=== PATIENT | female | born 1995 | race Caucasian/White ===

== ENCOUNTER 2024-07-08 17:07 | Outpatient (CLI) | payer MEDICAID, SELFPAY | END 2024-07-08 17:08 | disposition home or self-care (01) | LOC: AMB 07-09 08:01 | PROVIDERS: Visit Provider Emergency Medicine Emergency Medical Services | DX: R41.82 Altered mental status, unspecified (principal) | CPT/HCPCS: A0425; A0429 ==

== ENCOUNTER 2024-07-08 17:55 | Emergency (ER) | payer MEDICAID, SELFPAY ==
[2024-07-08] VITALS (23 sets, daily range): BP systolic 94–126; BP diastolic 62–82; PULSE 67–107; RESP 10–28; TEMP 36.4; O2SAT 96–100
--- NOTE | 2024-07-08 17:50 | CRLHL7_ITS ---
For Patients: As a result of the Century Cures Act, medical imaging exams and procedure reports are released immediately into your electronic medical record. You may view this report before your referring provider. If you have questions, please contact your health care provider. INDICATION: Altered mental status. TECHNIQUE: Noncontrast CT of the head with multiplanar reconstruction utilizing bone and soft tissue algorithms. COMPARISON: None available. FINDINGS: No acute intracranial hemorrhage. The meyer-white matter interface is preserved. The ventricles are normal in size. No abnormal extra-axial fluid collection is identified. Normal calvarium and skull base. Unremarkable orbits. The imaged paranasal sinuses and mastoid air cells are clear. IMPRESSION: No acute intracranial abnormality. Please note that all CT scans at this facility use dose modulation, iterative reconstruction, and/or weight-based dosing when appropriate to reduce radiation dose to as low as reasonably achievable. Dictated by Geoffrey Barker MD @ 07/08/2024 6:32:51 PM (Electronically Signed)
--- NOTE | 2024-07-08 17:54 | ED.AMS ---
HPI - Altered Mental Status General Chief Complaint: Altered Mental Status Stated Complaint: Altered Mental status Time Seen by Provider: 07/08/24 17:56 History of Present Illness HPI narrative: This patient comes in by ambulance. She is a 28-year-old who was sitting in her car as it was parked in a private driveway. The homeowner association manager of the property called the police who came and had her brought here by ambulance. The patient arrives with normal vital signs but is not responding verbally. She does briefly look at me but does not answer any questions. The nurse did look up her records and saw that she currently is and has a [place] home address. Related Data Home Medications ?Medication ?Instructions ?Recorded ?Confirmed buprenorphine-naloxone sublingual 07/08/24 fluoxetine .ROUTE 07/08/24 Allergies Allergy/AdvReac Type Severity Reaction Status Date / Time buspirone (From BuSpar) Allergy Unknown Verified 07/08/24 17:46 sertraline (From Zoloft) Allergy Unknown Verified 07/08/24 17:46 Review of Systems Status of ROS: Reports: unobtainable due to mental status Narrative: Unable to obtain due to mental status. 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 HEENT: Normocephalic, atraumatic. Heart: Regular. No murmurs. Normal rate. Intact distal pulses. Lungs: Clear to auscultation. No wheezes, rhonchi, or rales. Abdomen: Normal bowel sounds. Nontender. No rebound tenderness. Genitalia: Deferred. Extremities: Normal range of motion. No injury. Skin: Intact. No rash. Warm. No erythema or pallor. Neurologic: She opens her eyes and does look at me but does not respond verbally at all. She is not showing any neurologic deficit. When I raise her arm up and let it drop she guards it is fall back onto herself showing some volitional effort. Psychiatric: Not responding verbally. Nursing notes and vitals signs are reviewed. Const: Vital Signs, click to edit/add: Vital Signs - 24 hr 07/08/24 17:43 07/08/24 17:44 07/08/24 17:45 Temperature Pulse Rate 91 82 73 Pulse Rate [Pulse Oximeter] Respiratory Rate 28 H 17 21 Blood Pressure 126/82 Blood Pressure [Ri ght Upper Arm] Pulse Oximetry 97 100 100 Oxygen Delivery Me thod 07/08/24 17:46 07/08/24 18:00 07/08/24 18:21 Temperature 97.5 F L Pulse Rate 67 73 Pulse Rate [Pulse Oximeter] 70 Respiratory Rate 16 27 H 21 Blood Pressure Blood Pressure [Ri ght Upper Arm] 126/82 Pulse Oximetry 97 97 99 Oxygen Delivery Me thod Room Air 07/08/24 18:27 07/08/24 18:30 07/08/24 18:35 Temperature Pulse Rate 73 73 Pulse Rate [Pulse Oximeter] Respiratory Rate Blood Pressure 99/75 105/67 Blood Pressure [Ri ght Upper Arm] Pulse Oximetry 99 99 Oxygen Delivery Me thod 07/08/24 18:45 Temperature Pulse Rate 68 Pulse Rate [Pulse Oximeter] Respiratory Rate 16 Blood Pressure Blood Pressure [Ri ght Upper Arm] Pulse Oximetry 99 Oxygen Delivery Me thod Course Vital Signs Vital signs: Initial Vital Signs Pulse Rate 91 07/08/24 17:43 Respiratory Rate 28 H 07/08/24 17:43 Blood Pressure 126/82 07/08/24 17:43 Blood Pressure Mean 96 07/08/24 17:43 Pulse Oximetry 97 07/08/24 17:43 Vital Signs Pulse Rate 91 07/08/24 17:43 Respiratory Rate 28 H 07/08/24 17:43 Blood Pressure 126/82 07/08/24 17:43 Pulse Oximetry 97 07/08/24 17:43 Temperature 97.5 F L 07/08/24 17:46 Pulse Rate 68 07/08/24 18:45 Respiratory Rate 16 07/08/24 18:45 Blood Pressure 105/67 07/08/24 18:35 Pulse Oximetry 99 07/08/24 18:45 Oxygen Delivery Method Room Air 07/08/24 17:46 MDM - Altered Mental Status MDM Narrative Medical decision making narrative: This patient comes in by ambulance as she is not responding like she is sedated. She arrives here with normal vital signs and has a normal exam except she does not respond with voice or following commands. She did look at me when I 1st came into the room but then did not have any responses. An IV was established and labs are acquired. CT scan of her head is also obtained. These all returned with reassuring findings. Urinalysis and drug screen does return positive for benzodiazepine and marijuana. The patient does have a history of opiate and benzodiazepine abuse. She remained rather unresponsive in this same way for about 2 hours here. I did revisit her and she seemed to say something briefly when I came into the room but then again no response. About 5 minutes later the nurse was in there and she was talking normally. She seemed to wake up rather suddenly which is not characteristic of an overdose of benzodiazepines. She denies taking any street drugs or alcohol and now states that she feels normal and does not remember any of what happened. She does remember texting her sister earlier today to wish her a happy birthday. It is unclear what may have caused these circumstances. Does not appear that she had a seizure and was postictal for an extended time. She did not show any sign of seizure activity here and did not seem to respond for at least 2 in after 3 hours which is not characteristic of postictal symptoms. Perhaps she had some disturbance of her reticular activating Center and was not conscious or catatonic for a time. In any event she is acting very appropriately and is okay to be discharged home. Her car was impounded and her boyfriend will be able to come pick her up to bring her to her home. Lab Data Labs: Lab Results 07/08/24 07/08/24 Range/Units 18:35 18:51 WBC 11.78 H (4.50-11.00) K/uL RBC 4.27 (4.00-5.20) m/uL Hgb 12.8 (12.0-16.0) gm/dL Hct 37.5 (33.0-51.0) % MCV 88 (80-100) fL MCH 30 (26-34) pg MCHC 34 (32-36) gm/dL RDW Coeff of Rosa 12.3 (11.5-15.5) % Plt Count 224 (140-440) K/uL Neut % (Auto) 80.2 H (42.0-72.0) % Lymph % (Auto) 15.5 L (20-44) % [place]agara % (Auto) 3.8 (0.0-11.0) % Eos % (Auto) 0.1 (0.0-7.0) % Baso % (Auto) 0.2 (0.0-3.0) % Neut # (Auto) 9.40 H (1.7-7.0) K/uL Lymph # (Auto) 1.80 (0.90-2.90) K/uL [place] # (Auto) 0.40 (0.00-0.90) K/UL Eos # (Auto) 0.00 (0.00-0.50) K/uL Baso # (Auto) 0.00 (0.00-0.30) K/uL Abs Immat Gran (auto) 0.00 (0.00-0.30) K/uL Imm/Tot Granulo (auto) 0.2 % Sodium 131 L (135-149) mmol/L Potassium 4.3 (3.6-5.1) mmol/L Chloride 96 (96-114) mmol/L Carbon Dioxide 23 (20-32) mmol/L Anion Gap 12 (7-15) mEq/L BUN 8 (5-24) mg/dL Creatinine 0.5 (0.5-1.5) mg/dL Estimated GFR 130 ml/min Glucose 79 (60-115) mg/dL Calcium 10.0 (8.4-10.6) mg/dL Urine Color Yellow (Yellow) Urine Appearance Cloudy A (Clear) Urine pH 6.0 (5.0-8.5) Ur Specific Aurora 1.020 (1.000-1.030) Urine Protein Negative (Negative) Urine Glucose (UA) Negative (Negative) Urine Ketones Trace A (Negative) Urine Blood 1+ A (Negative) Urine Nitrite Negative (Negative) Urine Bilirubin Negative (Negative) Urine Urobilinogen 0.2 (0.2-1.0) Ur Leukocyte Esterase Negative (Negative) Urine RBC 0-2 (0-2) Urine WBC 0-2 (0-5) Ur Squamous Epith Cells Few (None-Few) Amorphous Sediment Many A (None) Urine Bacteria None (None) Salicylates < 1.0 L (1.0-10) mg/dL Urine Opiates Screen Negative (Negative) Ur Oxycodone Screen Negative (Negative) Urine Methadone Screen Negative (Negative) Ur Barbiturates Screen Negative (Negative) U Tricyclic Antidepress Negative (Negative) Ur Phencyclidine Scrn Negative (Negative) Ur Amphetamines Screen Negative (Negative) U Methamphetamines Scrn Negative (Negative) U Benzodiazepines Scrn POSITIVE A (Negative) Urine Cocaine Screen Negative (Negative) U Marijuana (THC) Screen POSITIVE A (Negative) Ur Drug Screen Comment See Note Ethyl Alcohol < 0.01 (0.01-0.03) % Imaging Data CT scan - head: Radiologist's impression: No acute intracranial abnormality. ECG Data Attestation: I personally reviewed and interpreted this ECG as follows: Interpretation: Normal sinus rhythm. Rate is 68 beats per minute. There are no ST or T-wave abnormalities. Discharge Plan Discharge Clinical Impression: Altered mental status Patient Disposition: Home w/ Parent or Adult Condition: Improved Additional Instructions: Continue current plans. Follow up with MD for ongoing management or return if symptoms are recurrent. Prescriptions: No Action buprenorphine-naloxone [Suboxone] sublingual fluoxetine [Prozac] .ROUTE Stand Alone Forms: [employer] [facility] Info Instructions
[2024-07-08 18:48] LABS: Basophils Percent Auto 0.2 % (0.0-3.0); Eosinophils Percent Auto 0.1 % (0.0-7.0); Hematocrit* 37.5 % (33.0-51.0); Hemoglobin* 12.8 gm/dL (12.0-16.0); Immature Granulocytes Pct Auto 0.2 %; Lymphocytes Percent Auto 15.5 % (20-44); Mean Corpuscular HGB Conc 34 gm/dL (32-36); Mean Corpuscular Hemoglobin 30 pg (26-34); Mean Corpuscular Volume 88 fL (80-100); Monocytes Percent Auto 3.8 % (0.0-11.0); Neutrophils Percent Auto 80.2 % (42.0-72.0); Platelet Count* 224 K/uL (140-440); RDW Coefficient of Variation % 12.3 % (11.5-15.5); Red Blood Count* 4.27 m/uL (4.00-5.20); White Blood Count* 11.78 K/uL (4.50-11.00)
[2024-07-08 18:51] LABS: Slide Review Reflex No
[2024-07-08 18:59] LABS: Appearance Urine Cloudy (Clear); Bilirubin Urine Negative (Negative); Blood Urine 1+ (Negative); Color Urine Yellow (Yellow); Glucose Urine Negative (Negative); Ketones Urine Trace (Negative); Leukocyte Esterase Urine Negative (Negative); Nitrite Urine Negative (Negative); Protein Urine Negative (Negative); Urobilinogen Urine 0.2 (0.2-1.0)
[2024-07-08 19:10] LABS: Amphetamine Screen Urine Negative (Negative); Barbiturate Screen Urine Negative (Negative); Benzodiazepines Screen Urine POSITIVE (Negative); Cannabinoid Screen Urine POSITIVE (Negative); Cocaine Screen Urine Negative (Negative); Methadone Screen Urine Negative (Negative); Methamphetamines Screen Urine Negative (Negative); Opiate Screen Urine Negative (Negative); Oxycodone Screen Urine Negative (Negative); Phencyclidine Screen Urine Negative (Negative); Tricyclic Antidepressant Urine Negative (Negative)
[2024-07-08 19:32] LABS: Chloride* 96 mmol/L (96-114); Potassium* 4.3 mmol/L (3.6-5.1); Sodium* 131 mmol/L (135-149)
[2024-07-08 19:34] LABS: Blood Urea Nitrogen* 8 mg/dL (5-24); Creatinine* 0.5 mg/dL (0.5-1.5); Estimated Glomerular Filt Rate 130 ml/min
[2024-07-08 19:35] LABS: Anion Gap 12 mEq/L (7-15); Carbon Dioxide* 23 mmol/L (20-32); Glucose* 79 mg/dL (60-115)
[2024-07-08 19:37] LABS: Ethanol* < 0.01 % (0.01-0.03); Salicylate* < 1.0 mg/dL (1.0-10)
[2024-07-08 19:48] LABS: Amorphous Sediment Urine Many; RBC Urine 0-2 (0-2); Squamous Epithelial Cell Urine Few (None-Few); WBC Urine 0-2 (0-5)
--- OUTSIDE RECORDS SUMMARY | 2024-07-08 20:46 | XMS_ITS | Encounter Summary ---
Author Organization [facility] er Address [address] [place] [address] Care Team Providers Care Appeals Examiner Name Role Phone Virginia Mendoza MD Primary Care Provider Encounter Details Date Type Department Care Team (Late st Contact Info) Description 12/14/2021 Telephone [facility] [address] [place] [phone] June Ewing RN [address] [place] [phone] Social History Tobacco Use Types Packs/Day Years Used Date Smoking Tobacco: Every Day Cigarettes Smokeless Tobacco: Never Alcohol Use Standard Drinks/Week Comments Not Currently 0 (1 standard drink = 0.6 oz pure alcohol) History of alcohol use disorder Humiliation, Afraid, Rape, and Kick questionnair e Answer Date Recorded Within the last year, have y ou been afraid of your partner or ex-partner? No 01/05/2020 Within the last year, have y ou been humiliated or emotionally abused in other ways by your partner or ex-partner? No Within the last year, have y ou been kicked, hit, slapped, or otherwise physically hurt by your partner or ex-partner? No 01/05/2020 Within the last year, have y ou been raped or forced to have any kind of sexual activity by your partner or ex-partner? No 01/05/2020 Social Connection and Isolat ion Panel [NHANES] Answer Date Recorded In a typical week, how many times do you talk on the phone with family, friends, or neighbors? More than three times a week 01/05/2020 How often do you get togethe r with friends or relatives? More than three times a week 01/05/2020 How often do you attend chur ch or scientologist services? Never 01/05/2020 Do you belong to any clubs o r organizations such as caodaism groups, unions, fraternal or athletic groups, or school groups? No 01/05/2020 How often do you attend meet ings of the clubs or organizations you belong to? Never 01/05/2020 Are you , , di vorced, , never , or living with a partner? Never 01/05/2020 AUDIT-C Answer Date Recorded Q1: How often do you have a drink containing alc ohol? Never 01/14/2020 Q2: How many drinks containi ng alcohol do you have on a typical day when you are drinking? Not asked 01/14/2020 Q3: How often do you have six or more drinks on one occasion? Never 01/14/2020 Overall Financial Resource Strain (CARDIA) Answe r Date Recorded How hard is it for you to pa y for the very basics like food, housing, medical care, and heating? Not hard at all 01/05/2020 PHQ-2 Answer Date Recorded PHQ-9 Total Score 0 12/14/2021 [facility] - Occupational Stress Questionnaire Answer Date Recorded Do you feel stress - tense, restless, nervous, or anxious, or unable to sleep at night because your mind is troubled all the time - these days? Very much 01/05/2020 Exercise Vital Sign Answer Date Recorde d On average, how many days pe r week do you engage in moderate to strenuous exercise (like a brisk walk)? 0 days 01/05/2020 On average, how many minutes do you engage in exercise at this level? 0 min 01/05/2020 Hunger Vital Sign Answer Date Recorded Within the past 12 months, y ou worried that your food would run out before you got the money to buy more. Never true 01/05/20 20 Within the past 12 months, t he food you bought just didn't last and you didn't have money to get more. Never true 01/05/2020 PRAPARE - Transportation Answer Date Re corded In the past 12 months, has l ack of transportation kept you from medical appointments or from getting medications? No 12/08 In the past 12 months, has l ack of transportation kept you from meetings, work, or from getting things needed for daily living? No 01/05/2020 Comments No Sex and Gender Information Value Date Recorded Sex Assigned at Female 01/30/2021 3:46 PM CDT Legal Sex Female 9:43 AM CDT Gender Identity Female 01/30/2021 3:46 PM CDT Sexual Orientation Straight 01/30/2021 3: 46 PM CDT Occupation Industry Job Start Date Job End Date Unemployed; currently in treatment. Not on file Not o n file Not on file documented as of this encounter Plan of Treatment Upcoming Encounters Date Type Department Care Team (Late st Contact Info) Description 08/04/2024 1:30 PM CDT Routine [facility] [employer] Dis[employer] Manager [address] [place] [phone] [place] [address] [place] [address] [phone] documented as of this encounter Visit Diagnoses Not on filedocumented in this encounter Care Teams Appeals Examiner Relationship Specialty Start Date End Date Virginia Mendoza MD [address] [place] [address] [phone] PCP - General Family Medicine 10/06/23 documented as of this encounter
--- OUTSIDE RECORDS SUMMARY | 2024-07-08 20:46 | XMS_ITS | Encounter Summary ---
Author Organization [facility] er Address [address] [place] [id number] Care Team Providers Care Image Processing Engineer Name Role Phone Virginia Mendoza MD Primary Care Provider Reason for Visit * Reason Comments Initial Visit Encounter Details Date Type Department Care Team (Late st Contact Info) Description 06/07/2024 1:00 PM IRONMOLDER Initial [facility] Material Worker [address] [place] [phone] [place] [address] [place] [address] [phone] [place]: [id number] Social History Tobacco Use Types Packs/Day Years Used Date Smoking Tobacco: Former Cigarettes Passive Smoke Exposure: Current Smokeless Tobacco: Never Alcohol Use Standard Drinks/Week Comments Not Currently 0 (1 standard drink = 0.6 oz pure alcohol) History of alcohol use disorder B1300 Health Literacy Answer Date Recor ded How often do you need to hav e someone help you when you read instructions, pamphlets, or other written material from your doctor or pharmacy? Never 06/07/2024 [facility] Utilities Answer Date Recorded In the past 12 months has e [employer], gas, oil, or water company threatened to shut off services in your home? No 06/07/2024 Humiliation, Afraid, Rape, and Kick questionnair e Answer Date Recorded Within the last year, have y ou been afraid of your partner or ex-partner? No 05/31/2024 Within the last year, have y ou been humiliated or emotionally abused in other ways by your partner or ex-partner? No Within the last year, have y ou been kicked, hit, slapped, or otherwise physically hurt by your partner or ex-partner? No 05/31/2024 Within the last year, have y ou been raped or forced to have any kind of sexual activity by your partner or ex-partner? No 05/31/2024 Social Connection and Isolat ion Panel [NHANES] Answer Date Recorded In a typical week, how many times do you talk on the phone with family, friends, or neighbors? More than three times a week 06/07/2024 How often do you get togethe r with friends or relatives? Twice a week 06/07/2024 How often do you attend chur or jehovah's witness services? Never 06/07/2024 Do you belong to any clubs o r organizations such as buddhism groups, unions, fraternal or athletic groups, or school groups? No 06/07/2024 How often do you attend meet ings of the clubs or organizations you belong to? Never 06/07/2024 Are you , , di vorced, , never , or living with a partner? Living with partner 06/07/2024 AUDIT-C Answer Date Recorded Q1: How often do you have a drink containing alc ohol? 2-4 times a month 06/07/2024 Q2: How many drinks containi ng alcohol do you have on a typical day when you are drinking? 1 or 2 06/07/2024 Q3: How often do you have si x or more drinks on one occasion? Less than monthly 06/07/2024 Overall Financial Resource Strain (CARDIA) Answe r Date Recorded How hard is it for you to pa y for the very basics like food, housing, medical care, and heating? Somewhat hard 06/07/2024 PHQ-2 Answer Date Recorded PHQ-9 Total Score 3 06/07/2024 [facility] [employer] - Occupational Stress Questionnaire Answer Date Recorded Do you feel stress - tense, restless, nervous, or anxious, or unable to sleep at night because your mind is troubled all the time - these days? Only a little 06/07/2024 Exercise Vital Sign Answer Date Recorde d On average, how many days pe r week do you engage in moderate to strenuous exercise (like a brisk walk)? 4 days 06/07/2024 On average, how many minutes do you engage in exercise at this level? 30 min 06/07/2024 Hunger Vital Sign Answer Date Recorded Within the past 12 months, y ou worried that your food would run out before you got the money to buy more. Sometimes true Within the past 12 months, t he food you bought just didn't last and you didn't have money to get more. Sometimes true 06/2024 PRAPARE - Transportation Answer Date Re corded In the past 12 months, has l ack of transportation kept you from medical appointments or from getting medications? No 06/2024 In the past 12 months, has l ack of transportation kept you from meetings, work, or from getting things needed for daily living? No 06/07/2024 Housing Stability Vital Sign Answer Jordy e Recorded In the last 12 months, was t here a time when you were not able to pay the mortgage or rent on time? No 02/11/2023 In the last 12 months, how many places have you lived? 1 02/11/2023 In the last 12 months, was t here a time when you did not have a steady place to sleep or slept in a retirement (including now)? No 02/11/2023 Housing Stability Vital Sign Answer Jordy e Recorded In the last 12 months, was t here a time when you were not able to pay the mortgage or rent on time? Patient declined 06/08/19 25 In the past 12 months, how m any times have you moved where you were living? 2 06/07/2024 At any time in the past [facility], were you homeless or living in a retirement (including now)? No 06/07/2024 Education Answer Date Recorded What is the highest level of school you have completed or the highest degree you have received? 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 at 8w0d confirmed by 7 week US who presents for an initial visit. Unknown LMP due to recent miscarriage. Feeling overall well other than minor fatigue. PMH: h/o substance use (in remission for few years). Was on suboxone but stopped last summer. Anxiety, depression, HLA b27 Her is complicated by: H/o substance abuse in remission Anxiety Depression HLA B27 Denies history of abnormal pap smears. Last pap many years ago. Patient Active Problem List Diagnosis Date Noted Date Diagnosed HLA B27 (HLA B27 positive) 05/31/2024 No symptoms--> recommended bASA in Depression 05/31/2024 Supervision of high risk , antepartum 05/31/2024 New OB Lab Results Lab Results Component Value Date HEPBSAG NON-REACTIVE 01/10/2020 HEPCAB REACTIVE (AA) 01/10/2020 RPR NON-REACTIVE 01/10/2020 CHLAMBYPCR NOT DETECTED 03/06/2023 GCBYPCR NOT DETECTED 03/06/2023 HGB 12.6 06/07/2024 PLT 314 06/07/2024 Varicella IgG Antibody index: No results found for: DEXG4 or status post varicella vaccine Genetic screening: Anatomy u/s: Flu vaccine: Tdap vaccine: RSV vaccine (32-36 6/7 weeks gestation between December to April.): Other seizures (HCC) 08/13/2023 Patient notes a history of seizures which were thought to be related to substance use. Reportedly attributed to LSD use and heroin withdrawal, at one point had recently started sertraline and was unclear if this contributed. Last seizure was 2 years ago so around 2021, reports a total of about 4-5 seizures over the course of 10 years. Was on Keppra previously but stopped around 10 years ago. Last Assessment & Plan: Avoid any medications that would lower seizure threshold. 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 Did well on 2 mg daily, but then when she stopped this had bad withdrawal symptoms sopresented to the ED on 07/26/2023. Was prescribed 4 mg daily based on her COWS score at time of presentation. Has been doing well on this dose most days, but about once a week will have some restlessness in the evening and take an additional 2 mg dose. Her goal is to eventually get of suboxone completely. 09/02/2023: Patient is currently on 4 mg Suboxone and would like to weaned down to 2 mg and then discontinue itcompletely. She feels that it is starting to ruin her teeth and she has no desire to do opioids anymore. She has not had a urine drug screen completed as she was not able to complete it at the end of her clinic visit on 08/12 and was not aware that she needed to schedule this Last Assessment & Plan: Discussed that it is important to schedule her urine drug screen. The order is active she just needs to call to schedule it when she is able Social anxiety disorder 02/01/2021 History of hepatitis C virus infection 12/01/2020 Positive HCV antibody [place] 01[place] [facility] Initially viral load [address]1025, eventually negative viral loadin 08/2020. Cleared infection. She reports treatment. 06/07/24 Hep C ab ordered, will likely be positive and viral load will be ordered HIV antibody positive (HCC) 01/12/2020 Hx of IVDU, including sharing needles. HIV antibody positive on 01/10/2020. Pt informed 01/12/2020. Confirmatory testing via both differentiation and RNA negative one two separate occassions. This means antibody testing was false positive. 06/07/24 HIV Ag ordered Generalized anxiety disorder 01/22/2019 Stable. Currently on Prozac Polysubstance abuse (HCC) 01/22/2019 History of opioid use disorder, no use for years. Discontinued suboxone last summer Severe benzodiazepine use disorder (HCC) 01/22/2019 Historically and recently Jan 2023 was given short course of prescription lorazepam for severe adjustment anxiety, relapsed on several illicit substances (meth, cocaine), as well as other benzodiazepines were found in her system (xanax, possible diazepam). Recommendation to NOT given benzodiazepines in outpatient setting. OB History 4 Para Term AB 3 Living SAB 1 IAB 2 Ectopic Multiple Live Births Past Medical History: Diagnosis Date Anxiety Depression Gene mutation HLA-B27 Generalized anxiety disorder 01/05/2020 History of hepatitis C Completed treatment Major depression 04/22/2019 Opioid use disorder, severe, in sustained remission (HCC) 02/01/2021 Social anxiety disorder 02/01/2021 Withdrawal seizures ([facility]) Past Surgical History: Procedure Laterality Date APPENDECTOMY WISDOM TOOTH EXTRACTION Current Outpatient Medications: cholecalciferol (VITAMIN D-3) 50 MCG (1999) tablet, , Disp: , Rfl: FLUoxetine (PROzac) 40 MG capsule, Take 1 capsule (40 mg total) by mouth 1 (one) time each day, Disp: 30 capsule, Rfl: 2 folic acid (FOLVITE) 1 MG tablet, , Disp: , Rfl: MV-Min-Fe Fum-FA-DHA ( 1 PO), , Disp: , Rfl: Allergies Allergen Reactions Buspirone Other (see comments) Sertraline Other (see comments) Pt reports a bad reaction to zoloft, however the reaction is unclear and occurred during a time of other drug use. Social History Socioeconomic History Marital status: Life Partner Spouse name: Arnulfo Quiles Number of children: Not on file Years of education: Not on file Highest education level: High school graduate Occupational History Occupation: Caregiver Comment: [employer] Tobacco Use Smoking status: Former Current packs/day: 0.25 Types: Cigarettes Passive exposure: Current Smokeless tobacco: Never Vaping Use Vaping status: Every Day Substances: Nicotine, Flavoring, occasional hits off her vape with nicotine ~ uses a vape with flavor otherwise without nicotine Devices: Disposable Substance and Sexual Activity Alcohol use: Not Currently Comment: History of alcohol use disorder Drug use: Not Currently Types: Heroin, IV Comment: Sober since 2021. Sexual activity: Yes Partners: Male Other Topics Concern Not on file Social History Narrative Jamar lives with her boyfriend/fob Baldev Quiles. This will be his first child as well. Social Drivers of Health Financial Resource Strain: Medium Risk (06/07/2024) Overall Financial Resource Strain (CARDIA) Difficulty of Paying Living Expenses: Somewhat hard Food Insecurity: Food Insecurity Present (06/07/2024) Hunger Vital Sign Worried About Running Out of Food in the Last Year: Sometimes true Ran Out of Food in the Last Year: Sometimes true Transportation Needs: No Transportation Needs (06/07/2024) PRAPARE - Transportation Lack of Transportation (Medical): No Lack of Transportation (Non-Medical): No Physical Activity: Insufficiently Active (06/07/2024) Exercise Vital Sign Days of Exercise per Week: 4 days Minutes of Exercise per Session: 30 min Stress: No Stress Concern Present (06/07/2024) [facility] [employer]ational Health - Occupational Stress Questionnaire Feeling of Stress : Only a little Social Connections: Moderately Isolated (06/07/2024) Social Connection and Isolation Panel [NHANES] Frequency of Communication with Friends and Family: More than three times a week Frequency of Social Gatherings with Friends and Family: Twice a week Attends Sabianist Services: Never Active Member of Clubs or Organizations: No Attends Club or Organization Meetings: Never Marital Status: Living with partner Intimate Partner Violence: Not At Risk (05/31/2024) Humiliation, Afraid, Rape, and Kick questionnaire Fear of Current or Ex-Partner: No Emotionally Abused: No Physically Abused: No Sexually Abused: No Housing Stability: High Risk (06/07/2024) Housing Stability Vital Sign Unable to Pay for Housing in the Last Year: Patient declined Number of Times Moved in the Last Year: 2 Homeless in the Last Year: No Objective Physical Exam Vitals: 06/07/24 1254 BP: 122/73 GENERAL: Resting comfortable, in no apparent distress. HEAD: No signs of head trauma. NECK: Trachea is midline. No thyromegaly or thyroid masses. BREAST EXAM: Deferred CHEST: Unlabored respiration. Chest with clear breath sounds bilaterally. No wheezes, rales, or rhonchi. CARDIAC: Regular rate and rhythm. No murmurs VASCULAR: No lower extremity edema. ABDOMEN: Soft. No sign of distention. Nontender. No rebound or guarding, and no masses palpated. Nohepatosplenomegaly. GENITOURINARY: External genitalia normal in appearance. Urethral meatus without lesions or prolapse. Vagina normal without discharge or lesions. Cervix normal in appearance with closed cervical os. Pap collected MUSCULOSKELETAL: Extremities without clubbing, cyanosis or edema. NEUROLOGIC EXAM: Alert and oriented to person, place and time. PSYCHIATRIC: Affect normal. SKIN: No rash or lesions. 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 [facility] model of care reviewed. Genetic screening options reviewed - she desires possible mat21, insurance information provided. She will consider this Risk factors for preeclampsia include: nulliparity, autoimmune. She does meet criteria for preeclampsia prevention with low-dose aspirin. Will discuss at next visit- start at 12 weeks. The patient was given the 4 Ps screening tool for substance use at the time of her NOB phone call and the score placed the patient into the low zone of use currently. History of substance use. UDS recommended but will defer per her request as she had oxycodone in the ED for a tooth issue. Will consider at next visit Reviewed available vaccines in , she desires none today. Emergency number (after hours) given to pt. She was advised to call with any questions, spotting/bleeding or significant pelvic pain. Advised a vitamin with 0.4-1.0 mg, (400-1000 mcg) folic acid daily. Also DHA, 200 mg, if not a fish eater. Discussed continuing exercise: 30 minutes, 5 days a week. Discussed safe med list she will call if something she would like to take is not listed. Discussed avoidance of: *tobacco, drugs or alcohol. *high risk activities such as horse-back riding, skiing, skating (anything that would put you at risk for injury) *cats and cat litter (toxoplasma) *raw meat or fish, sushi (listeria) *un-pasteurized dairy products such as soft cheeses (listeria) Discussed the need to steam deli meats 20 seconds in microwave (listeria) Follow up in 4 weeks for return OB visit. Needs to discuss bASA at that visit. Heather Ramirez MD MOLDER documented in this encounter Plan of Treatment Upcoming Encounters Date Type Department Care Team (Late st Contact Info) Description 08/04/2024 1:30 PM CDT Routine [facility] Material Worker [address] [place] [phone] Heather Ramirez MD [address] [place] [address] [phone] documented as of this encounter Procedures Procedure Name Priority Date/Time Associated Diagnosis Comments MOLECULAR VAGINITIS/VAGINOSIS PANEL Routine 06/07/2024 1:29 PM IRONMOLDER Vaginal discharge HPV HIGH RISK DNA DETECTION WITH GENOTYPING Routine 06/07/2024 1:21 PM IRONMOLDER Supervision of high risk , antepartum CHLAMYDIA AND NEISSERIA BY PCR Routine 06/07/2024 1:21 PM IRONMOLDER Supervision of high risk , antepartum PAP TEST Routine 06/07/2024 1:21 PM IRONMOLDER Supervision of high risk , antepartum documented in this encounter Results * (ABNORMAL) Rubella antibody, IgG (06/07/2024 1:53 PM IRONMOLDER) [facility] Rubella IgG NON-REACT SARAH(A) SEE BELOW 06/07/2024 4:22 PM IRONMOLDER [facility] Comment: A reactive result indicates either prior exposure to the virus or response to vaccination. The presence of rubella IgG suggests immunity against rubella. The results from this or any other diagnostic test should be used and interpreted only in the context of the overall clinical picture. Heterophilic antibodies in serum or plasma samples may cause interference in immunoassays. Exposure to animal antigens, either in the environment or as part of treatment or imaging procedures, may have circulating anti-animal antibodies present. These antibodies may interfere with the assay reagents to produce unreliable results. Results which are inconsistent with clinical observations indicate the need for additional testing. Blood (Blood, Venous) 06/07/2024 1:53 PM IRONMOLDER 06/07/2024 2:56 PM IRONMOLDER Heather Ramirez MD LAB BLOOD ORDERABLES Final Result Performing Organization Address City/[facility]/ZIP Co de Phone Number [facility] [address] [place] [address] * RPR (06/07/2024 1:53 PM IRONMOLDER) [facility] RPR NON-REACTI VE Non-reacti ve 06/07/2024 9:18 PM IRONMOLDER [facility] Blood (Blood, Venous) 06/07/2024 1:53 PM IRONMOLDER 06/07/2024 2:56 PM IRONMOLDER Heather Ramirez MD LAB BLOOD ORDERABLES Final Result [facility] [address] [place] [phone] * HIV 1 & 2 Ag and Ab, 4th Gen, Screen (06/07/2024 1:53 PM IRONMOLDER) [facility] HIV 1 & 2 Ag and Ab, 4th Gen, Screen NON-REACT SARAH Non-React sarah 06/07/2024 3:46 PM IRONMOLDER [facility] Comment: The results from this or any other diagnostic test should be used and interpreted only in the context of the overall clinical picture. Heterophilic antibodies in serum or plasma samples may cause interference in immunoassays. Exposure to animal antigens, either in the environment or as part of treatment or imaging procedures, may have circulating anti-animal antibodies present. These antibodies may interfere with the assay reagents to produce unreliable results. Results which are inconsistent with clinical observations indicate the need for additional testing. Blood (Blood, Venous) 06/07/2024 1:53 PM IRONMOLDER 06/07/2024 2:47 PM IRONMOLDER Heather Ramirez MD LAB BLOOD ORDERABLES Final Result [facility] [address] [place] [address] * (ABNORMAL) Hepatitis C antibody (06/07/2024 1:53 PM IRONMOLDER) Hepatitis C Antibody REACTIVE( AA) Non-React sarah 06/07/2024 5:44 PM IRONMOLDER [facility] Comment: Reportable Disease Agent. Electronically Reported to [facility]. It is recommended by the CDC that reactive screening results be followed by supplemental testing with a more specific assay, such as recombinant immunoblot assay [RIBA] or RNA testing by PCR. The results from this or any other diagnostic test should be used and interpreted only in the context of the overall clinical picture. Heterophilic antibodies in serum or plasma samples may cause interference in immunoassays. Exposure to animal antigens, either in the environment or as part of treatment or imaging procedures, may have circulating anti-animal antibodies present. These antibodies may interfere with the assay reagents to produce unreliable results. Results which are inconsistent with clinical observations indicate the need for additional testing. Blood (Blood, Venous) 06/07/2024 1:53 PM IRONMOLDER 06/07/2024 2:56 PM IRONMOLDER Heather Ramirez MD LAB BLOOD ORDERABLES Final Result Performing Organization Address [facility] Co de Phone Number [facility] [address] [place], [place] [phone] * Hepatitis B surface antigen (06/07/2024 1:53 PM IRONMOLDER) Pathologist [facility] Hep. Bs Antigen (HBsAg) NON-REACT SARAH Non-React sarah 06/07/2024 4:22 PM IRONMOLDER [facility] Comment: The results from this or any other diagnostic test should be used and interpreted only in the context of the overall clinical picture. Heterophilic antibodies in serum or plasma samples may cause interference in immunoassays. Exposure to animal antigens, either in the environment or as part of treatment or imaging procedures, may have circulating anti-animal antibodies present. These antibodies may interfere with the assay reagents to produce unreliable results. Results which are inconsistent with clinical observations indicate the need for additional testing. Blood (Blood, Venous) 06/07/2024 1:53 PM IRONMOLDER 06/07/2024 2:56 PM IRONMOLDER Heather Ramirez MD LAB BLOOD ORDERABLES Final Result Performing Organization Address [facility] de Phone Number [facility] [address] [place] [phone] * (ABNORMAL) CBC ([facility]) (06/07/2024 1:53 PM IRONMOLDER) [facility] WBC 10.6(H) 3.5 - 10.5 K/uL 06/07/2024 3:06 PM [facility] RBC 4.31 3.90 - 5.00 M/uL 06/07/2024 3:06 PM [facility] Hemoglobin 12.6 12.0 - 15.5 g/dL 06/07/2024 3:06 PM [facility] Hematocrit 37.9 35.0 - 44.0 % 06/07/2024 3:06 PM [facility] Platelets 314 150 - 450 K/uL 06/07/2024 3:06 PM [facility] MCV 87.9 81.6 - 98.3 fL 06/07/2024 3:06 PM [facility] MCH 29.2 26.0 - 32.0 pg 06/07/2024 3:06 PM [facility] MCHC 33.2 32.0 - 36.0 g/dL 06/07/2024 3:06 PM [facility] RDW 13.2 11.9 - 15.5 % 06/07/2024 3:06 PM [facility] NRBC %, Automated 0 % 06/07/2024 3:06 PM [facility] NRBC Absolute, Autmated 0.00 K/uL 06/07/2024 3:06 PM [facility] Comment: 0-4 Days: 0.01 -0.02 >=5 Days: 0.00 Blood (Blood, Venous) 06/07/2024 1:53 PM IRONMOLDER 06/07/2024 2:56 PM IRONMOLDER Heather Ramirez MD LAB BLOOD ORDERABLES Final Result Performing Organization Address [facility]/ZIP Co de Phone Number [facility] [address] [place] [address] * Antibody Screen (Gel) (06/07/2024 1:53 PM IRONMOLDER) Antibody Screen NEG 06/07/2024 4:08 PM [facility] Blood (Blood, Venous) 06/07/2024 1:53 PM IRONMOLDER 06/07/2024 2:56 PM IRONMOLDER Heather Ramirez MD LAB BLOOD BANK TEST ORDERAB LES Final Result Performing Organization Address [facility]/ZIP Co de Phone Number [facility] [address] [place], [place] [id number] * ABO/Rh (Gel) (06/07/2024 1:53 PM IRONMOLDER) ABO/Rh A POS 06/07/2024 4:02 PM [facility] Blood (Blood, Venous) 06/07/2024 1:53 PM IRONMOLDER 06/07/2024 2:56 PM IRONMOLDER Heather Ramirez MD LAB BLOOD BANK TEST ORDERAB LES Final Result Performing Organization Address [facility]/ZIP Co de Phone Number [facility] [address] [place] [phone] * Urine Screen (06/07/2024 1:38 PM IRONMOLDER) Pathologist [facility] Urine Screen No Growth 06/08/2024 12:19 PM IRONMOLDER [facility] Urine (Urine, Clean Catch) 06/07/2024 1:38 PM IRONMOLDER 06/07/2024 2:58 PM IRONMOLDER Comment:Urine Screen Heather Ramirez MD LAB MICROBIOLOGY - GENERAL ORDERABLES Final Result Performing Organization Address [facility] de Phone Number [facility] [address] [place] [phone] * (ABNORMAL) Molecular Vaginitis/Vaginosis Panel (06/07/2024 1:29 PM IRONMOLDER) [facility] Bacterial Vaginosis NEGATIVE Negative 06/07 4:23 PM [facility] Liliana species group DETECTED(A) Not Detected 06/07/2024 4:23 PM [facility] Liliana glabrata/krusei NOT DETECTED Not Detected 06/07/2024 4:23 PM [facility] Trichomonas vaginalis NOT DETECTED Not Detected 06/07/2024 4:23 PM [facility] Comment: Interpret results in conjunction with other laboratory and clinical data. Testing performed on the [employer] GeneXpert using real-time PCR for the amplification of specific DNA targets utilizing fluorogenic, target-specific hybridization probes to detect and differentiate DNA from organisms associated with: *Bacterial vaginosis: Atopobium spp.(Atopobium vaginae, Atopobium novel species CCUG [id number]), Bacterial Vaginosis-Associated Bacterium 2 (BVAB2), and Megasphaera-1 *Liliana spp.(C. albicans, C. tropicalis,C. parapsilosis, C. dubliniensis, species not differentiated) *Liliana glabrata/Liliana krusei (species not differentiated) *Trichomonas vaginalis The following organisms may cross-react with the MVP assay: Liliana orthopsilosis, Pentatrichomonas hominis, and Trichomonas tenax. Test has not been evaluated in patients less than 14 years of age. Swab (Vagina) 06/07/2024 1:2 9 PM IRONMOLDER 06/07/2024 2:58 PM IRONMOLDER us Heather Ramirez MD LAB MICROBIOLOGY - GENERAL ORDERABLES Final Result [facility] [address] [place] [address] * HPV High Risk DNA Detection with Genotyping (06/07/2024 1:21 PM IRONMOLDER) Source Cx/Endocerv ix 06/08/2024 6:27 PM IRONMOLDER [facility] HPV Type 16 Negative Negative 06/08/2024 6:27 PM IRONMOLDER [facility] HPV Type 18 Negative Negative 06/08/2024 6:27 PM IRONMOLDER [facility] HPV non-Type 16 or 18 Negative Negative 06/08/2024 6:27 PM IRONMOLDER [facility] Comment: The following Other High Risk HPV types were not detected: 31, 33, 35, 39, 45, 51, 52, 56, 58, 59, 66, and 68. ADDITIONAL INFORMATION Testing was performed using the paul HPV assay ([employer] This report is intended for use in clinical monitoring and management of patients. It is not intended for use in medical-legal applications. This test has been modified from the aquatic biologist's instructions. Its performance characteristics were determined by [facility] in a manner consistent with CLIA requirements. This test has not been cleared or approved by the U.S. Food and Drug Administration. Test Performed by: [facility] [address] [place] [address] Leader Tier: Vish Sol Ph.D.; CLIA# [id number] Pap collection bottle 06/07/2024 1:21 PM IRONMOLDER 06/07/2024 2:23 PM IRONMOLDER us Heather Ramirez MD LAB CYTOLOGY ORDERABLES Luis E menchaca Result [facility] [address] [place] [address], [place] * (ABNORMAL) Pap Smear (06/07/2024 1:21 PM IRONMOLDER) Sure Path PAP, screen 06/07/2024 1:21 PM IRONMOLDER 06/07/2024 2:24 PM IRONMOLDER Narrative [facility] - 06/09/2024 2:18 PM IRONMOLDER [facility] [address] [place] [address] Patient: JAMAR AYALA Procedure: 06/07/2024 13:21 /Age/Sex: 1995, 28 Y, F Received: 06/07/2024 14:24 Bill[place] Patient Location: [facility] Ordered by: HEATHER RAMIREZ MD Attending: HEATHER RAMIREZ MD DIGITAL MEDIA COORDINATOR CYTOLOGY FINAL REPORT SPECIMEN: (A) SURE PATH PAP, SCREEN SPECIMEN DESCRIPTION: Cervical/Endocervical Received cloudy specimen in SurePath vial. CLINICAL INFORMATION: : Y SPECIMEN ADEQUACY: Satisfactory for evaluation. Endocervical cells/transformation zone component present. GENERAL CATEGORIZATION: Epithelial cell abnormality. INTERPRETATION/RESULTS: Atypical squamous cells of undetermined significance (ASCUS). Fungal organisms morphologically consistent with Liliana species. Seen in consultation with Dr. Moss. PAP Test Disclaimer Cervical cytology is a screening test primarily for squamous cancer and its precursors and has associated false-negative and false-positive results. Regular sampling and follow-up of unexplained clinical signs and symptoms are recommended to minimize the impact of false negative and false positive results. Screened By: ARTUR BARRETT(ASCP) Signed By: ETELVINA KEARNEY MD <Sign Out Dr. Walters> Reported: 06/09/2024 Page 1 of 1 us Heather Ramirez MD LAB CYTOLOGY ORDERABLES Fin al Result [facility] [address] [place] [address] * Chlamydia and Neisseria by PCR (06/07/2024 1:21 PM IRONMOLDER) Chlamydia trachomatis NOT DETECTED Not Detected 06/07/2024 5:02 PM [facility] Source Endocervix 06/07/2024 1:58 PM [facility] Comment: Test performed using Nursenav GeneXpert (real-time PCR for detection and differentiation of genomic DNA from Chlamydia trachomatis and/or Neisseria gonorrhoeae. Test has not been evaluated in the following: o Patients with a history of hysterectomy o Patients less than 14 years of age o Ocular or urethral specimens Urine samples other than First Void (dirty) are not recommended. Interpret Not Detected results with caution if Clean Catch was submitted for testing. Interpret results in conjunction with other laboratory and clinical data. Neisseria gonorrhoeae by PCR NOT DETECTED Not Detected 06/07/2024 5:02 PM [facility] Source Endocervix 06/07/2024 1:58 PM [facility] Comment: Test performed using Nurs[employer] GeneXpert (real-time PCR for detection and differentiation of genomic DNA from Chlamydia trachomatis and/or Neisseria gonorrhoeae. Test has not been evaluated in the following: o Patients with a history of hysterectomy o Patients less than 14 years of age o Ocular or urethral specimens Urine samples other than First Void (dirty) are not recommended. Interpret Not Detected results with caution if Clean Catch was submitted for testing. Interpret results in conjunction with other laboratory and clinical data. 

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
--- OUTSIDE RECORDS SUMMARY | 2024-07-08 20:46 | XMS_ITS | Patient Health Record ---
Author Organization [facility] Address [address] [place] [address] Care Team Providers Care Coo & Co Founder Name Role Phone CARMEN MCCOLLUM Unavailable [phone] Allergies No Known Allergies Reason For Referral Reason Eval and Treatment Diagnosis 1 Anxiety (F41.9) Referral Organization [facility] abdirahman Referring Provider First Name HOOD Referring Provider Last Name DANNY Referring Provider Speciality Physician Recycling Coordinator Referred Provider Specialty Psychiatry Referral Priority Routine Medications Medication SIG (Take, Route, Frequency, Duration) Notes Start Date End Date Status ALPRAZolam 1 MG Oral for 7 Days Active clonazePAM 0.5 MG Oral for 4 Days Active Buprenorphine HCl-Naloxone HCl 4-1 MG Sublingual for 30 Days Activ e FLUoxetine HCl 20 MG Oral for 30 Days Active Suboxone 2-0.[address] FILM UNDER THE TONGUE TWICE DAILY Sublingual for 29 Days Unknown Social History Tobacco Use: Social History Observation Description Date Details (start date - stop date) Never Smoker NA - NA Tobacco Control (Standard) Question Answer Notes Tobacco use: Nonsmoker Problems Problem Type SNOMED Code ICD Code Onset Dates Problem Status W/U Status Risk Notes Problem 22108988 Anxiety (F41.9) Active confirmed Vital Signs Height 65 in 09/08/2023 Patient Reported Normal Blood Presure Patient Reported Normal Temperature Weight 130 lbs 09/08/2023 Patient Reported Normal Blood Presure Patient Reported Normal Temperature BMI 21.63 kg/m2 09/08/2023 Patient Reported Normal Blood Presure Patient Reported Normal Temperature Encounters Encounter Location Date Provider Diagnosis [facility] [address] [place] [address] 09/02/2023 CARMEN MCCOLLUM Anxiety F41.9 [facility] [address] [place] [address] 09/08/2023 CARMEN MCCOLLUM Anxiety F41.9 and Opioid use F11.90 [facility] [address] [place] [address] 09/02/2023 CARMEN MCCOLLUM Assessments Encounter Date Diagnosis (ICD Code) Assessment Notes Treatment Notes Treatment Clinical Notes Section Notes 09/02/2023 Anxiety (ICD-10 - F41.9) This patient is requesting a [facility] controlled substance. Our service, by rule, does not prescribe these medications unless very specific circumstances exist. If prescribed, these medicines must be confirmed through a federal database as appropriately prescribed. These medications have state and federal regulations even when prescribed in person, let alone through telehealth which is far more regulated. Despite regulation, prescription of these medications in this form of medical care is unsafe and inappropriate unless very specific circumstances exist. This patient needs follow-up with their primary prescriber and should see a specialist for watermaster, longitudinal, and safe care moving forward.Learning About Anxiety Disorders material was published Anxiety is a normal reaction to stress. Difficult situations can cause you to have symptoms such as sweaty palms and a nervous feeling. In an anxiety disorder, the symptoms are far more severe. Constant worry, muscle tension, trouble sleeping, nausea and diarrhea, and other symptoms can make normal daily activities difficult or impossible. These symptoms may occur for no reason, and they can affect your work, school, or social life. Medicines, counseling, and self-care can all help. FOLLOW UP WITH PSYCHIATRY DISCUSSED. Take medicines exactly as directed. Call your doctor if you think you are having a problem with your medicine. Go to your counseling sessions and follow-up appointments. Recognize and accept your anxiety. Then, when you are in a situation that makes you anxious, say to yourself, This is not an emergency. I feel uncomfortable, but I am not in danger. I can keep going even if I feel anxious. Be kind to your body: Relieve tension with exercise or a massage. Get enough rest. Avoid alcohol, caffeine, nicotine, and illegal drugs. They can increase your anxiety level and cause sleep problems. Learn and do relaxation techniques. See below for more about these techniques. Engage your mind. Get out and do something you enjoy. Plan your day. Having too much or too little to do can make you anxious. Keep a record of your symptoms. Discuss your fears with a good friend or family member, or join a support group for people with similar problems. Talking to others sometimes relieves stress. Get involved in social groups, or volunteer to help others. Being alone sometimes makes things seem worse than they are. Get at least 30 minutes of exercise on most days of the week to relieve stress. Walking is a good choice. You also may want to do other activities, such as running, swimming, cycling, or playing tennis or team sports. Relaxation techniques Do relaxation exercises 10 to 20 minutes a day. Call 911 anytime you think you may need emergency care. For example, call if: You feel you cannot stop from hurting yourself or someone else. Keep the numbers for these national suicide hotlines: 7-084-420-TALK ( ) and 9-997-HIELOUX ( ). If you or someone you know talks about suicide or feeling hopeless, get help right away. Watch closely for changes in your health, and be sure to contact your doctor if: You have anxiety or fear that affects your life. You have symptoms of anxiety that are new or different from those you had before. Her history shows multiple providers and multiple controlled medications. 09/08/2023 Anxiety (ICD-10 - F41.9) FLAG THIS CHART. PATIENT IS DRUG SHOPPING. CALLED PHARMACY AND SHE WENT [facility] AND PICKED UP A SCRIPT FOR ALPRAZOLAM 1 MG ONCE DAILY FOR 15 DAYS#15 TABS, FOR A DR. MANOLO YUSUF ON 09/03/2023. TREATMENT PLAN: MEDICATION DENIED UNABLE TO LOCATE RECORDS Your medication refill request has been denied as we couldn't find documentation confirming your current usage of this medication. To expedite approval, please provide documentation from your prescribing physician outlining your need, supporting test results, and the pharmacy details. Once received, we can provide a limited supply until you're able to consult your regular physician.PATIENT EDUCATION: ANXIETY Anxiety is a normal reaction to stress. Difficult situations can cause you to have symptoms such as sweaty palms and a nervous feeling. In an anxiety disorder, the symptoms are far more severe. Constant worry, muscle tension, trouble sleeping, nausea and diarrhea, and other symptoms can make normal daily activities difficult or impossible. These symptoms may occur for no reason, and they can affect your work, school, or social life. Medicines, counseling, and self-care can all help. FOLLOW UP WITH PSYCHIATRY DISCUSSED. Here are a list of different online options: https://www.talki KellBenxy.com/ https://www.brigh tside.com/ https://www.talks pace.com/ https://www.jesus rhelp.com/ https://get.[employer].com Take medicines exactly as directed. Call your doctor if you think you are having a problem with your medicine. Go to your counseling sessions and follow-up appointments. Call 911 anytime you think you may need emergency care. For example, call if: You feel you cannot stop from hurting yourself or someone else. Keep the numbers for these national suicide hotlines: Dial 988, 8-772-554-TALK ( ) or 9-384-YZFXSRC ( ). If you or someone you know talks about suicide or feeling hopeless, get help right away. Watch closely for changes in your health, and be sure to contact your doctor if: You have anxiety or fear that affects your life. You have symptoms of anxiety that are new or different from those you had before. 09/08/2023 Opioid use (ICD-10 - F11.90) 09/02/2023 Other Follow the treatment plan as indicated by the provider. Take any medications as prescribed. If you have any questions about your prescription, ask the pharmacist. Call 911 anytime you think you may need emergency care. For example, call if:You have severe trouble breathing.You have a seizure.Call your doctor now or seek immediate medical care if:You have trouble breathing.You have a fever with a stiff neck or a severe headache.You have pain or pressure in your chest or belly.You have a fever or cough that returns after getting better.You feel very sleepy, dizzy, or confused.You are not urinating.You have severe muscle pain.You have severe weakness, or you are unsteady.You have medical conditions that are getting worse.Watch closely for changes in your health, and be sure to contact your doctor if:You do not get better as expected.You are having a problem with your medicine. You participated in a [employer] Rx request, considered an asynchronous visit where you provide your symptoms and medical history, and a treatment plan is formulated based on your submission. A treatment plan and patient education were provided based on your submission. If symptoms persist or worsen, you should seek in-person care or call 911 immediately for further evaluation. 09/08/2023 Other Follow the treatment plan as indicated by the provider. Take any medications as prescribed. If you have any questions about your prescription, ask the pharmacist. Call 911 anytime you think you may need emergency care. For example, call if:You have severe trouble breathing.You have a seizure.Call your doctor now or seek immediate medical care if:You have trouble breathing.You have a fever with a stiff neck or a severe headache.You have pain or pressure in your chest or belly.You have a fever or cough that returns after getting better.You feel very sleepy, dizzy, or confused.You are not urinating.You have severe muscle pain.You have severe weakness, or you are unsteady.You have medical conditions that are getting worse.Watch closely for changes in your health, and be sure to contact your doctor if:You do not get better as expected.You are having a problem with your medicine. You participated in a [employer] Rx request, considered an asynchronous visit where you provide your symptoms and medical history, and a treatment plan is formulated based on your submission. A treatment plan and patient education were provided based on your submission. If symptoms persist or worsen, you should seek in-person care or call 911 immediately for further evaluation. Plan Of Treatment No Information Insurance Providers Payer Name Payer Address Payer Phone Subscriber Number Group Number Insured Name Patient Relationship to Insured Coverage Start Date Coverage End Date [employer] [address] [place] [id number] Jamar Michele Self - patient is the insured Medical (General) History Medical History History ICD Code Anxiety opioid addiction
--- OUTSIDE RECORDS SUMMARY | 2024-07-08 20:46 | XMS_ITS | Encounter Summary ---
Author Organization [facility] er Address [address] [place] [address] Care Team Providers Care Bed And Breakfast Innkeeper Name Role Phone Virginia Mendoza MD Primary Care Provider Encounter Details Date Type Department Care Team (Late st Contact Info) Description 06/07/2024 Orders Only [facility] Front Load Trash Truck Driver [address] [place] [phone] [place] [address] [place] [phone] Yeast infection (Primary Dx) Social History Tobacco Use Types [...] from your doctor or pharmacy? Never 06/07/2024 [facility] Utilities Answer Date Recorded In the past 12 months has e electric, gas, oil, or water company threatened to [...] How often do you attend chur or spiritism services? Never 06/07/2024 Do you belong to any clubs o r organizations such as restorationist groups, unions, fraternal or athletic groups, or [...] Date Recorded PHQ-9 Total Score 3 06/07/2024 [facility] of Occupat ional Health - Occupational Stress [...] place to sleep or slept in a fci (including now)? No 02/11/2023 Housing Stability Vital [...] any time in the past 12 m [facility], were you homeless or living in a fci (including now)? No 06/07/2024 Education Answer Date [...] Info) Description 08/04/2024 1:30 PM CDT Routine [facility] Front Load Trash Truck Driver [address] [place] [phone] Heather Ramirez MD [address] [place] [phone] documented as of this encounter Visit Diagnoses Diagnosis Yeast infection- Primary documented in this encounter Care Teams Bed And Breakfast Innkeeper Relationship Specialty Start Date End Date Virginia Mendoza MD [address] [place] [phone] PCP - General Family Medicine 10/06/23 documented as of this encounter
--- OUTSIDE RECORDS SUMMARY | 2024-07-08 20:46 | XMS_ITS | Encounter Summary ---
Author Organization [facility] er Address [address] [place] [phone] Care Team Providers Care Clock Maker Name Role Phone Virginia Mendoza MD Primary Care Provider Reason for Referral * Consultation (Routine) - Authorized Specialty Diagnoses / Procedures Referred By Contjt t Referred To Contact Nutrition Education / Nutrition Diagnoses test positive Jasmyn Gray APRN CNM [address] [place] [phone] Phone: tel: fax: Referral ID Status Reason Start Date Expiration Date Visits Requested Visits Authorized [id number] Authorized Specialty Services Required 05/31/2024 05/31/2025 1 1 Scheduling Instructions Staff from this department will contact the patient to schedule an appointment. NCIAL ACCOUNTANT Reason for Visit * Reason Comments Early concerns Encounter Details Date Type Department Care Team (Late st Contact Info) Description 05/31/2024 1:40 PM FINANCIAL ACCOUNTANT Office Visit [facility] Review Consultant [address] [place] [phone] Jasmyn Gray APRN CNM [address] [place] [phone] Supervision of high risk , antepartum (Primary Dx); test positive; Immunization due Social History Tobacco Use Types Packs/Day Years Used Date Smoking Tobacco: Former Cigarettes Passive Smoke Exposure: Current Smokeless Tobacco: Never Tobacco Cessation:Counseling Given: Not Answered Alcohol Use Standard Drinks/Week Comments Not Currently [...] or ex-partner? No 05/31/2024 Social Connection and Isolation Panel [NHANES] A nswer Date Recorded Frequency of Communication with Friends and Fami ly Not on file 05/31/2024 Frequency of Social Gatherin gs with Friends and Family Not on file 05/31/2024 Attends Temple Services Not on file 05/31 Active Member of Clubs or Organizations Not on f ile 05/31/2024 Attends Club or Organization Meetings Not on minnie e 05/31/2024 Are you , , di vorced, , never , or living with a partner? Living with partner 05/31/2024 AUDIT-C Answer Date Recorded Q1: How often do you have a drink containing alc ohol? Monthly or less 05/31/2024 Q2: How many drinks containi ng alcohol do you have on a typical day when you are drinking? 1 or 2 05/31/2024 Q3: How often do you have si x or more drinks on one occasion? Never 05/31/2024 Overall Financial Resource Strain (CARDIA) Answe r Date Recorded How hard is it for you to pa y for the very basics like food, housing, medical care, and heating? Not hard at all 05/31/2024 PHQ-2 Answer Date Recorded PHQ-9 Total Score 0 05/31/2024 [facility] of Occupat ional Health - Occupational Stress Questionnaire Answer Date Recorded Do you feel stress - tense, restless, nervous, or anxious, or unable to sleep at night because your mind is troubled all the time - these days? Only a little 05/31/2024 Exercise Vital Sign Answer Date Recorde d On average, how many days pe r week do you engage in moderate to strenuous exercise (like a brisk walk)? 5 days 05/31/2024 On average, how many minutes do you engage in exercise at this level? 30 min 05/31/2024 Hunger Vital Sign Answer Date Recorded Within the past 12 months, y ou worried that your food would run out before you got the money to buy more. Never true 05/31/19 25 Within the past 12 months, t he food you bought just didn't last and you didn't have money to get more. Never true 05/31/2024 PRAPARE - Transportation Answer Date Re corded In the past 12 months, has l ack of transportation kept you from medical appointments or from getting medications? No 05/09 In the past 12 months, has l ack of transportation kept you from meetings, work, or from getting things needed for daily living? No 05/31/2024 Housing Stability Vital Sign Answer Jordy e [...] place to sleep or slept in a residential (including now)? No 02/11/2023 Housing Stability Vital Sign Answer Jordy e Recorded In the last 12 months, was t here a time when you were not able to pay the mortgage or rent on time? No 05/31/2024 In the past 12 months, how m any times have you moved where you were living? 0 05/31/2024 At any time in the past 12 m [facility], were you homeless or living in a residential (including now)? No 05/31/2024 Education Answer Date Recorded What is the [...] Sign Reading Time Taken Comments Blood Pressure 121/76 05/31/2024 1:25 PM FINANCIAL ACCOUNTANT Pulse 82 05/31/2024 1:25 PM FINANCIAL ACCOUNTANT Temperature - - Respiratory Rate 16 05/31/2024 1:25 PM FINANCIAL ACCOUNTANT Oxygen Saturation - - Inhaled Oxygen Concentration - - Weight 67.2 kg (148 lb 1.6 oz) 05/31/2024 1:25 P M FINANCIAL ACCOUNTANT Height - - Body Mass Index 24.65 05/31/2024 10:35 AM FINANCIAL ACCOUNTANT documented in this encounter Patient Instructions * Patient Instructions* Jasmyn Gray APRN CNCasey - 05/31/2024 1:40 PM FINANCIAL ACCOUNTANT OB10 Results IF you had lab tests today, or an ultrasound, we will talk about your results with you at your nextroutine OB visit and/or they will be sent to you on [facility]. We will let you know if any of the results are abnormal, or more testing is needed. Who to Call Please call the OBGYN department at [phone] if you have vaginal bleeding, vaginal spotting, abnormal vaginal discharge, or have any questions/concerns. OB Concerns [facility] Center: [phone]. CALL - When you have painful, regular contractions every 5 minutes for at least 1 hour without stopping. You may have been given instructions on when you should call based on how often you are havingcontractions. In general, we are looking for contractions that are every 3-4 minutes, from the start of one contraction to the start of the next contraction. They will usually last 45-60 seconds. CALL - If your bag of water breaks. Sometimes there is a big gush of fluid, and sometimes it is just a little bit that comes out constantly. Don't wait for contractions to start before you call. CALL - If you have vaginal bleeding that is continuous and as heavy as a period. It is normal to pass some blood with mucus before you go into labor. This is called bloody show or the mucus plug. You do not need to call for this. CALL - If your baby moves much less one day than it did the day before. Before you call, try eatingsomething or drinking something sweet, like fruit juice. You should lie on your left side and counteach movement for 1 hour. Call if there are less than 4 movements in 1 hour. CALL - If you are having bad abdominal pain. Kick Counts You should begin performing regular kick counts starting at 28 weeks. Take 1 hour out of the day when your baby is normally moving and concentrate on your baby's movement. You should feel at least 4 movements in one hour. Movements can include a kick, rub, hiccup, push, tap, or position change. If you don't feel at least 4 movements, try eating something or drinking something sweet, like fruit juice. Lie on your left side and feel for your baby again. If you still don't feel at least 4 movements in that hour, please contact the OBGYN clinic at [phone] during business hours (Friday-Friday, 8-5pm) or the Center at [phone] after business hours. Classes and Preparation -- Classes fill up fast! We suggest that you register around 24 weeks of . [place] online for in-person group classes: [email or web address] --One-to-one classes, instruction with only you, your partner or family member or members,and the educator, are available. If you are interested, please ask your provider about ordering this for you. -- [employer] offers anytime, anywhere, parent education designed to give you convenient access to valuable, research-based information on care, labor and , care, ,and care, including lots of videos! [employer] can also provide you with unique tools like a kick counter, contraction timer, personal journal, and more. How to get access to [employer]: [place] for the program by going to: [email or web address] You will then receive an email from [email or web address] providing you with your login and password information. Please note: The email will come from [employer] and not [facility]. If you donot receive a confirmation, be sure to check your email's TellMi folder. After you have created your account, you can access [employer] in 2 ways: Download the free mobile jason from your jason store. Search ???[employer].?? or Login on the [employer] website: [email or web address] Instructions for your Clinic Visits: If you have a fever, cough, body aches, a hard time catching your breath, or have been around someone who has COVID-19, and have not yet been COVID tested: Call us before you come to the clinic at [phone]. DO NOT COME to the clinic until you call, even if you have an appointment. If you have tested positive for COVID: Call us before you come to the clinic at [phone]. Please understand that we may reschedule your clinic visit to another time. Instructions for your BirthCenter (Labor and Delivery) Care: Call us first before coming to the hospital - [phone]. DO NOT come to the BirthCenter without calling. IF you have COVID and need to come to the Center: Remind staff of your positive COVID-19 test when you call before you come. Come in the [facility] doors, like you do for appointments. DO NOT come into the building through the Emergency Room. Please note: Per [facility] policy, we do not allow videotaping of deliveries or resuscitations. NCIAL ACCOUNTANT documented in this encounter Progress Notes * Jasmyn Gray APRN CNM - 05/31/2024 1:40 PM CST Jamar Michele presents to the clinic today requesting a note for her employer. 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 She reports this client weighs approximately 300 pounds and has almost fallen when she is providing her assistancein getting up the stairs, in and out of her car and accompanied her to appointments. She reports suffering a miscarriage this past February and has concerns about continuing this if she needs to continue to care for this client. She is uncertain of her last menstrual period. She has a dating ultrasound scheduled for June 02. Her first OB appointment is scheduled on June 07. She is wondering if she may have some [id number] test completed today. She has questions about weight gain during . She reports she knows she was underweight prior to becoming . She has gained approximately 18 pounds since her positive test. Current Outpatient Medications on File Prior to Visit Medication Sig Dispense Refill cholecalciferol (VITAMIN D-3) 50 MCG (1999) tablet FLUoxetine (PROzac) 40 MG capsule Take 1 capsule (40 mg total) by mouth 1 (one) time each day 30 capsule 2 folic acid (FOLVITE) 1 MG tablet MV-Min-Fe Fum-FA-DHA ( 1 PO) ibuprofen (ADVIL) 800 MG tablet Take 1 tablet (800 mg total) by mouth 3 (three) times a day if needed for mild pain (pain) for up to 30 doses Take with food. (Patient not taking: Reported on 05/31/2024) 30 tablet 0 No current facility-administered medications on file prior to visit. Past Medical History: Diagnosis Date Anxiety Depression Gene mutation HLA-B27 Generalized anxiety disorder 01/05/2020 History of hepatitis C Completed treatment Major depression 04/22/2019 Opioid use disorder, severe, in sustained remission (HCC) 02/01/2021 Social anxiety disorder 02/01/2021 Withdrawal seizures ([facility]) Past Surgical History: Procedure Laterality Date APPENDECTOMY WISDOM TOOTH EXTRACTION Vitals: 05/31/24 1325 BP: 121/76 Pulse: 82 Resp: 16 General: Alert, pleasant female in no acute distress. She makes good eye contact and answers questions appropriately. She is well-groomed and dressed. Jamar was seen today for early concerns. Diagnoses and all orders for this visit: Supervision of high risk , antepartum (Primary) test positive - Ambulatory referral to Nutrition Services Immunization due Note provided to her employer restricting her ability to lift, push or pull greater than 25 pounds.Patient was informed we usually wait until around 20 weeks to provide this type of note. Maternity 21 brochure provided to her today. Recommend she call the number for insurance coverage about this test. Recommend she wait to have this test completed until we know her gestational age and informed her blood will be drawn at her first OB appointment on June 07 and this test could be completed at that time. Referral provided to dietitian in order to receive more nutritional guidance for . Encouraged to eat a healthy, balanced diet and drink plenty of water. Informed she is not eating for 2 and the amount of calories in addition to usual intake is equivalent to a slice of bread. She declined vaccination today. NCIAL ACCOUNTANT documented in this encounter Plan of Treatment Upcoming Encounters Date Type Department Care Team (Late st Contact Info) Description 08/04/2024 1:30 PM CDT Routine [facility] Review Consultant [address] [place] [phone] Heather Ramirez MD [address] [place] [phone] Scheduled Referrals Name Type Priority Associated Diagnoses Order Schedule Ambulatory referral to Nutrition Services Outpatient Referral Routine test positive Ordered: 05/31/2024 documented as of this encounter Visit Diagnoses Diagnosis Supervision of high risk , antepartum- Primary test positive examination or test, positive result Immunization due documented in this encounter Care Teams Clock Maker Relationship Specialty Start Date End Date Virginia Mendoza MD [address] [place] [phone] PCP - General Family Medicine 10/06/23 documented as of this encounter
--- OUTSIDE RECORDS SUMMARY | 2024-07-08 20:46 | XMS_ITS | Encounter Summary ---
Author Organization [facility] er Address [address] [place] [address] Care Team Providers Care Automobile Taillight Assembler Name Role Phone Virginia Mendoza MD Primary Care Provider Reason for Visit * Reason Comments Depression Encounter Details Date Type Department Care Team (Latest Contact Info) Description 06/11/2024 4:20 PM CONTACT LENS INSPECTOR Office Visit Family Medicine 4th Floor [address] [place] [address] Virginia Mendoza MD [address] [place] [phone] Acute nonintractable headache, unspecified headache type (Primary Dx); Moderate episode of recurrent major depressive disorder (HCC); Supervision of high risk , antepartum Social History Tobacco Use Types Packs/Day Years [...] from your doctor or pharmacy? Never 06/07/2024 [facility] Utilities Answer Date Recorded In the past 12 months has [facility] [employer], gas, oil, or water Customer[employer] threatened to shut off services in your [...] 06/07/2024 How often do you attend chur ch or evangelical services? Never 06/07/2024 Do you belong to any clubs o r organizations such as latter day groups, unions, fraternal or athletic groups, or [...] Date Recorded PHQ-9 Total Score 3 06/07/2024 [facility] Occupat ional Health - Occupational Stress [...] place to sleep or slept in a senior care (including now)? No 02/11/2023 Housing Stability Vital [...] any time in the past 12 m [facility], were you homeless or living in a senior care (including now)? No 06/07/2024 Education Answer Date [...] Sign Reading Time Taken Comments Blood Pressure 119/71 06/11/2024 3:31 PM CONTACT LENS INSPECTOR Pulse 87 06/11/2024 3:31 PM CONTACT LENS INSPECTOR Temperature 36.5 C (97.7 F) 06/11/2024 3:31 PM CONTACT LENS INSPECTOR Respiratory Rate 18 06/11/2024 3:31 PM CONTACT LENS INSPECTOR Oxygen Saturation 100% 06/11/2024 3:31 PM CONTACT LENS INSPECTOR Inhaled Oxygen Concentration - - Weight 67.6 kg (149 lb) 06/11/2024 3:31 PM CONTACT LENS INSPECTOR Height - - Body Mass Index 24.79 05/31/2024 10:35 AM CONTACT LENS INSPECTOR documented in this encounter Progress Notes * Virginia Mendoza MD - 06/11/2024 4:20 PM CST Subjective Patient ID: Jamar Michele is a 28 y.o. female with PMH depression, anxiety, polysubstance use in remission who presents today to discuss depression. Chief Complaint Patient presents with Depression History of Present Illness The patient presents for evaluation of depression, epilepsy, dental issues, and headaches. She is currently in the early stages of and reports a positive overall well-being. She has abstained from vaping, drug use, and alcohol consumption. She is on vitamins and Prozac. She reports no current symptoms of depression or anxiety but requires a refill of her antidepressantmedication. She expresses uncertainty about continuing Prozac during her and is considering a switch to Wellbutrin, as recommended by her mother. She also questions the safety of while on Prozac. She has an upcoming appointment with Dr. Garcia in 07/2024. She has a supportive home environment with her partner who works from home. She experienced a miscarriage in 02/2024, which she managed independently due to lack of health insurance at the time. She has a history of seizures, primarily attributed to drug use and withdrawal. She has been on Suboxone for an extended period, which has resulted in dental decay. She sought emergency care for severe dental pain and was prescribed OxyContin and antibiotics. Unaware of her , she continued the OxyContin for two weeks. She plans to have a tooth extracted and has scheduled an appointment with her dentist in 07/2024. She requests a prescription for higher strength Tylenol, which she currently takes a few times a week. SOCIAL HISTORY She quit vaping. She does not endorse drug use or alcohol intake. FAMILY HISTORY Her maternal aunt has a history of drug addiction, anxiety, and depression. MEDICATIONS Current: Fluoxetine, vitamins Past: Suboxone, OxyContin A provider reviewed the following portions of the patient's chart in this encounter and updated as appropriate: Tobacco Allergies Meds Problems Med Hx Surg Hx Fam Hx Review of Systems Per HPI Objective Visit Vitals BP 119/71 (BP Location: Left arm, Patient Position: Sitting, BP Cuff Size: Adult) Pulse 87 Temp 36.5 ??C (97.7 ??F) Resp 18 Wt 67.6 kg (149 lb) LMP 03/16/2024 (Within Days) SpO2 100% BMI 24.79 kg/m?? OB Status Smoking Status Former BSA 1.76 m?? Physical Exam Lungs were auscultated. Physical Exam Constitutional: General: She is not in acute distress. Appearance: Normal appearance. Eyes: Conjunctiva/sclera: Conjunctivae normal. Cardiovascular: Rate and Rhythm: Normal rate and regular rhythm. Heart sounds: Normal heart sounds. No murmur heard. Pulmonary: Effort: Pulmonary effort is normal. No respiratory distress. Breath sounds: Normal breath sounds. Skin: General: Skin is warm and dry. Neurological: Mental Status: She is alert and oriented to person, place, and time. Psychiatric: Mood and Affect: Mood normal. Behavior: Behavior normal. Results Laboratory Studies No hepatitis C. Assessment/Plan Diagnoses and all orders for this visit: Acute nonintractable headache, unspecified headache type - acetaminophen (TYLENOL) 500 MG tablet; Take 2 tablets (1,000 mg total) by mouth every 8 (eight) hours if needed for mild pain or moderate pain Moderate episode of recurrent major depressive disorder (HCC) - FLUoxetine (PROzac) 40 MG capsule; Take 1 capsule (40 mg total) by mouth 1 (one) time each day Supervision of high risk , antepartum - Vit-Fe Fumarate-FA ( Vitamins) 28-0.8 MG tablet; Take 1 tablet by mouth 1 (one) time each day Assessment & Plan 1. Depression. She is currently stable on Prozac (fluoxetine) and has no refills left. The potential risks and benefits of continuing Prozac during were discussed, including the lack of evidence for increased miscarriage or defects. The possibility of switching to Wellbutrin (bupropion) was considered but deemed inappropriate during due to her history of potential seizures and potential side effects in . She will continue with Prozac. A prescription for 90 capsules of Prozacwas provided. She was advised to consult her OB-MENTAL HEALTH AIDE for any concerns beyond the scope of . 2. Epilepsy. She has a history of seizures, primarily due to drug use and withdrawals. The use of Wellbutrin wasdiscussed and deemed inappropriate during due to its potential to lower the seizure threshold. She will continue with Prozac and avoid Wellbutrin during . Post-, any changes in her medication regimen will be discussed with neurology. 3. Dental issues. She reported significant dental issues, including a tooth that needs to be pulled. She has an upcoming dental appointment in July. She was advised to continue with her dental care plan. 4. Headaches. A prescription for Tylenol 500 mg, to be taken as two tablets every 8 hours, was provided. She was advised to consult Dr. Sanchez for alternative headache management strategies if Tylenol proves ineffective. 5. care. A prescription for vitamins was provided, with instructions to continue their use post-. She was also advised to bring up any concerns to her OB-MENTAL HEALTH AIDE during her frequent visits. Follow up: MARGOTH Canales MD [facility] Medicine Attestation Copilot technology is used to create documentation for this note. This note/live dictation was created with voice recognition software ([employer]). Therefore, it may contain grammatical errors/misspellings/other errors that went unnoticed. documented in this encounter Plan of Treatment Upcoming Encounters Date Type Department Care Team (Late st Contact Info) Description 08/04/2024 1:30 PM CDT Routine [facility] [address] [place] [address] Heather Ramirez MD [address] [place] [phone] documented as of this encounter Visit Diagnoses Diagnosis Acute nonintractable headache, unspecified headache type- Primary Moderate episode of recurrent major depressive disorder (HCC) Supervision of high risk , antepartum documented in this encounter Care Teams Automobile Taillight Assembler Relationship Specialty Start Date End Date Virginia Mendoza MD [address] [place] [phone] PCP - General Family Medicine 10/06/23 documented as of this encounter
--- OUTSIDE RECORDS SUMMARY | 2024-07-08 20:46 | XMS_ITS | Encounter Summary ---
Author Organization [facility] er Address [address] [place] [address] Care Team Providers Care Active Directory Architect Name Role Phone Virginia Mendoza MD Primary Care Provider Reason for Visit * Reason Comments Routine Visit Encounter Details Date Type Department Care Team (Latest Contact Info) Description 07/07/2024 2:45 PM CDT Routine [facility] Workers Compensation Consultant [address] [place] [address] Jasmyn Gray, [facility] [address] [place] [phone] Supervision of high risk , antepartum (Primary Dx); HLA B27 (HLA B27 positive); ASCUS of cervix with negative high risk HPV; History of hepatitis C virus infection; Yeast infection; 12 weeks gestation of Social History Tobacco Use Types Packs/Day Years [...] from your doctor or pharmacy? Never 06/07/2024 [facility] Utilities Answer Date Recorded In the [...] How often do you attend chur or christian services? Never 06/07/2024 Do you belong to any clubs o r organizations such as islam groups, unions, fraternal or athletic groups, or [...] Date Recorded PHQ-9 Total Score 3 06/07/2024 [facility] Occupational Stress Questionnaire Answer Date [...] place to sleep or slept in a penitentiary (including now)? No 02/11/2023 Housing Stability Vital [...] any time in the past 12 m [facility], were you homeless or living in a penitentiary (including now)? No 06/07/2024 Education Answer Date [...] Sign Reading Time Taken Comments Blood Pressure 134/78 07/07/2024 2:24 PM CDT Pulse - - Temperature - - Respiratory Rate - - Oxygen Saturation - - Inhaled Oxygen Concentration - - Weight 68.9 kg (151 lb 12.6 oz) 07/07/2024 2:24 PM CDT Height - - Body Mass Index 25.26 05/31/2024 10:35 AM UNDERWRITING CLERK documented in this encounter Patient Instructions * Patient Instructions* Roxy Suggs RN - 07/07/2024 2:45 PM CDT OB12 Results IF you had lab tests today, or an ultrasound, we will talk about your results with you at your nextroutine OB visit and/or they will be sent to you on [employer]. We will let you know if any of the results are abnormal, or more testing is needed. Who to Call Please call the OBGYN department at [phone] if you have vaginal bleeding, vaginal spotting, abnormal vaginal discharge, or have any questions/concerns. OB Concerns [facility] Center: [phone]. CALL - When you have painful, regular [...] hour, please contact the OBGYN clinic at [phone] during business hours (Friday-Friday, 8-5pm) or the Center at [phone] after business hours. Classes and Preparation -- Classes fill up fast! We suggest that you register around 24 weeks of . [place]ambling online for in-person group classes: [email or web address] --One-to-one classes, instruction with only you, your partner or family member or members,and the educator, are available. If you are interested, please ask your provider about ordering this for you. -- [employer] offers anytime, anywhere, parent education designed to give you convenient access to valuable, research-based information on care, labor and , care, ,and care, including lots of videos! [employer] can also provide you with unique tools like a kick counter, contraction timer, personal journal, and more. How to get access to [employer]: Grambling for the program by going to: [email or web address] You will then receive an email from [employer] providing you with your login and password information. Please note: The email will come from [facility] sevenload [facility]. If you donot receive a confirmation, be sure to check your email's spaZank folder. After you have created your account, you can access [employer] in 2 ways: Download the free mobile jason from your jason store. Search ???YoMingo.?? or Login on the [employer] website: [email or web address]. -- [employer] offers anytime, anywhere, parent education designed to give you convenient access to valuable, research-based information on care, labor and , care, ,and care, including lots of videos! [employer] can also provide you with unique tools like a kick counter, contraction timer, personal journal, and more. How to get access to [employer]: Grambling for the program by going to: [email or web address] You will then receive an email from [employer] providing you with your login and password information. Please note: The email will come from [facility] [employer] [facility]. If you donot receive a confirmation, be sure to check your email's Portable Internet folder. After you have created your account, you can access [employer] in 2 ways: Download the free mobile jason from your jason store. Search ???YoMingo.?? or Login on the [employer] website: [email or web address]. Instructions for your Clinic Visits: If you have a fever, cough, body aches, a hard time catching your breath, or have been around someone who has COVID-19, and have not yet been COVID tested: Call us before you come to the clinic at [phone]. DO NOT COME to the clinic until you call, even if you have an appointment. If you have tested positive for COVID: Call us before you come to the clinic at [phone]. Please understand that we may reschedule your clinic visit to another time. Instructions for your BirthCenter (Labor and Delivery) Care: Call us first before coming to the hospital - [phone]. DO NOT come to the BirthCenter without calling. IF you have COVID and need to come to the Center: Remind staff of your positive COVID-19 test when you call before you come. Come in the [facility] doors, like you do for appointments. DO NOT come into the building through the Emergency Room. Please note: Per [facility] policy, we do not allow videotaping of deliveries or resuscitations. documented in this encounter Progress Notes * Jasmyn Gray APRN CNM - 07/07/2024 2:45 PM CDT 12w2d Accompanied by her client. Feeling fatigued. She treated vaginal yeast infection and has no current symptoms. Desires [id number] test. She completed the Sneak Peek test at home and it said the fetus is male. She will start low dose ASA, prescription sent to pharmacy. Reviewed NOB labs and reviewed recommendation for pap smear in 3 years. Informed anatomy US is completed around 20 weeks of . documented in this encounter Plan of Treatment Upcoming Encounters Date Type Department Care Team (Late st Contact Info) Description 08/04/2024 1:30 PM CDT Routine [facility] Workers Compensation Consultant [address] [place] [address] Heather Ramirez MD [address] [place] [phone] Pending Results Name Type Priority Associated Diagnoses Date /Time [id number] Lab Routine Supervision of high risk , antepartum 07/07/2024 3:32 PM CDT Scheduled Orders Name Type Priority Associated Diagnoses Orde r Schedule [id number] Lab Routine Supervision of high risk , antepartum Expected: 07/07/2024, Expires: 10/06/2024 documented as of this encounter Visit Diagnoses Diagnosis Supervision of high risk , antepartum- Primary HLA B27 (HLA B27 positive) Genetic susceptibility to other disease ASCUS of cervix with negative high risk HPV History of hepatitis C virus infection Yeast infection 12 weeks gestation of documented in this encounter Care Teams Active Directory Architect Relationship Specialty Start Date End Date Virginia Mendoza MD [address] [place] [phone] PCP - General Family Medicine 10/06/23 documented as of this encounter
--- OUTSIDE RECORDS SUMMARY | 2024-07-08 20:46 | XMS_ITS ---
Author Organization [facility] Address [address] [place] [address] Care Team Providers Care Race Steward Name Role Phone CARMEN MCCOLLUM Unavailable [phone] Allergies No Known Allergies Reason For Referral Reason Eval and Treatment Diagnosis 1 Anxiety (F41.9) Referral Organization [facility] abdirahman Referring Provider First Name HOOD Referring Provider Last Name DANNY Referring Provider Speciality Physician Floor Manager Referred Provider Specialty Psychiatry Referral Priority Routine REASON FOR VISIT CS TO [facility]ANDA ASYN Prescription Refill, Patient requesting service from promotional campaign rx_refill Medications Medication SIG (Take, Route, Frequency, Duration) Notes Start Date End Date Status Buprenorphine HCl-Naloxone HCl 4-1 MG Sublingual for 30 Days Unkno wn clonazePAM 0.5 MG Oral for 4 Days Active Suboxone 2-0.[address] FILM UNDER THE TONGUE TWICE DAILY Sublingual for 29 Days Unknown FLUoxetine HCl 20 MG Oral for 30 Days Unknown Social History Tobacco Use: Social History Observation Description Date Details (start date - stop date) Never Smoker NA - NA Tobacco Control (Standard) Question Answer Notes Tobacco use: Nonsmoker Problems Problem Type SNOMED Code ICD Code Onset Dates Problem Status W/U Status Risk Notes Problem [id number] Anxiety (F41.9) Active confirmed Vital Signs Height 65 in 09/02/2023 Weight 130 lbs 09/02/2023 BMI 21.63 kg/m2 09/02/2023 Patient Reported Normal Bloo d PresurePatient Reported Normal Temperature Encounters Encounter Location Date Provider Diagnosis [facility] [address] [place] [address] 09/02/2023 CARMEN MCCOLLUM Anxiety F41.9 Assessments Encounter Date Diagnosis (ICD Code) Assessment [...] prescriber and should see a specialist for jail, longitudinal, and safe care moving forward.Learning About [...] the numbers for these national suicide hotlines: 5-615-152-TALK ( ) and 2-496-RGEBLBQ ( ). If you or someone you [...] shows multiple providers and multiple controlled medications. 09/02/2023 Other Follow the treatment plan as [...] immediately for further evaluation. Plan Of Treatment Treatment Notes Assessment Notes Anxiety This patient is requesting a SETH controlled [...] prescriber and should see a specialist for jail, longitudinal, and safe care moving forward.Learning About [...] the numbers for these national suicide hotlines: 8-756-841-TALK ( ) and 5-288-VJMWNDS ( ). If you or someone you know talks about suicide or feeling hopeless, get help right away. Watch closely for changes in your health, and be sure to contact your doctor if: You have anxiety or fear that affects your life. You have symptoms of anxiety that are new or different from those you had before. Other Follow the treatment plan as indicated [...] are having a problem with your medicine. Referrals Referral Date Details 09/02/2023 09/02/2023, Eval and Treatment Next Appt Details Follow Up: PCP,2 - 3 Days, Cecy montague: Progress Notes * Carolin AYALAOB:1995 (28 yo F)Acc No.[id number]:09/02/2023 Patient: Jamar OSBORN Provider: Jr MCCOLLUM MD :1995 A ge:28 Y S ex:Female Date:09/02/2023 Phone: Address:[address] [place] [phone] Subjective: * Chief Complaints: * 1 . [facility] Prescription Refill. 2. Patient requesting service from promotional campaign rx_refill. * HPI: T eleHealth Complaint History: Reason for visit: P rescription Refill Requested: C lonazepam, .5, 30 Reason: A nxiety How Lon months PER PT: I need a refill I ran out today and my pharmacy is closed. [facility] on [address] will be open. * ROS: A ll Other Systems: Review of Systems (ROS) S [facility] for details. * Medical History: A nxiety. * Surgical History: D enies Past Surgical History. * Hospitalization/Major Diagno stic Procedure: D enies Past Hospitalization. * Family History: N on-Contributory. * Social History: T obacco Use: T obacco Control (Standard) T obacco use: N onsmoker D rugs/Alcohol: D o you drink alcohol?: No. * Medications: T aking clonazePAM 0.5 MG Tablet Oral , Unknown Buprenorphine HCl-Naloxone HCl 4-1 MG Film Sublingual , Unknown FLUoxetine HCl 20 MG Capsule Oral , Unknown Suboxone 2-0.[address] ONE FILM UNDER THE TONGUE TWICE DAILY Sublingual , Medication List reviewed and reconciled with the patient * Allergies: N .K.D.A. Objective: * Vitals: H t: 65 in, Wt:130lbs, BMI:21.63Index. Patient Reported Normal Blood Presure Patient Reported Normal Temperature. * Physical Examination: A synchronous visit, unable to assess. Assessment: * Assessment: 1. A nxiety - F41.9 (Primary) Plan: * Treatment: 2. O thers Notes: Follow the treatment plan as indicated by the provider. Take any medications as prescribed. If you have any questions about your prescription, ask the pharmacist. [id number] you think you may need emergency care. For example, call if:You have severe trouble breathing.You have a seizure.Call your doctor nowor seek immediate medical care if:You have trouble [...] are having a problem with your medicine. Clinical Notes:You participated in a [facility] request, considered an asynchronous visit where you provide your symptoms and medical history, and a treatment plan is formulated based on your submission. A treatment plan and patient education were provided based on your submission. If symptoms persist or worsen, you should seek in-person care or call 911 immediately for further evaluation. Referral To:Psychiatry Reason: * Procedure Codes: S 9088 [facility], MPFEE Merchant / CC Processing Fee, [id number] Office Visit, Est Pt., Level 3, delivered asynchronous, Modifiers: GQ , 35134 Office Visit, Est Pt., Level 2, delivered asynchronous, Modifiers: GQ * Follow Up: P CP,2 - 3 Days * Billing Information: * Visit Code: * Procedure Codes: S9088 [facility]. MPFEE Merchant / CC Processing Fee. [id number] Office Visit, Est Pt., Level 3, delivered asynchronous. Modifiers: GQ 00863 Office Visit, Est Pt., Level 2, delivered asynchronous. Modifiers: GQ Images * 09-02-23 Consent * Sign off status: Completed true * Provider: Jr MCCOLLUM MD Date: 0 09/02/2023 Generated for Babatunde perry/Devendra/eTransmitting on: 0 07/08/2024 09:46 PM EDT History and Physical Notes * Physical Examination Category Sub-Category Detail Notes Section Note s Asynchronous vi sit, unable to assess Consultation Request Notes Referral Date Referring Provider Referred Provider Not es 09/02/2023 HOOD DELGADO Eval and Treat ment
--- OUTSIDE RECORDS SUMMARY | 2024-07-08 20:46 | XMS_ITS | Clinical Summary ---
Author Organization [facility] er Address [address] [place] [address] Care Team Providers Care Endocrinology Physician Name Role Phone Virginia Mendoza MD Primary Care Provider Allergies Active Allergy Reactions Criticality Noted Date Comments Buspirone Other (see comments) High 05/18/2015 Sertraline Other (see comments) High 12/29/2014 Pt reports a bad reaction to zoloft, however the reaction is unclear and occurred during a time of other drug use. Medications * This document contains information received from the source organization and may not represent a complete record from that organization. cholecalciferol (VITAMIN D-3) 50 MCG (1999) tablet Active folic acid (FOLVITE) 1 MG tablet Active acetaminophen (TYLENOL) 500 MG tabletIndications: Acute nonintractable headache, unspecified headache type Take 2 tablets (1,000 mg total) by mouth every 8 (eight) hours if needed for mild pain or moderate pain 90 tablet 3 06/12/19 25 Active FLUoxetine (PROzac) 40 MG capsuleIndications :Moderate episode of recurrent major depressive disorder (HCC) Take 1 capsule (40 mg total) by mouth 1 (one) time each day 90 capsule 3 06/12/19 25 026 Active Vit-Fe Fumarate-FA ( Vitamins) 28-0.8 MG tabletIndications: Supervision of high risk , antepartum Take 1 tablet by mouth 1 (one) time each day 90 tablet 3 06/12/19 25 026 Active Cyanocobalamin (VITAMIN B 12 PO) Take 1 tablet by mouth 1 (one) time each day Active aspirin 81 MG EC tabletIndications: HLA B27 (HLA B27 positive) Take 1 tablet (81 mg total) by mouth 1 (one) time each day 90 tablet 3 07/08/19 25 026 Active FLUoxetine (PROzac) 40 MG capsuleIndications :Moderate episode of recurrent major depressive disorder (HCC) Take 1 capsule (40 mg total) by mouth 1 (one) time each day 30 capsule 2 12/29/19 24 025 Discontinu ed(Reorder ) MV-Min-Fe Fum-FA-DHA ( 1 PO) 05/08/19 25 025 Discontinu ed(Therapy Completed) miconazole (Monistat 7 Simply Cure) 2 % vaginal creamIndications:Y east infection Insert 1 applicator into the vagina every night for 7 days 35 g 06/08/19 25 025 Vit-Fe Fumarate-FA ( Vitamins) 28-0.8 MG tabletIndications: Supervision of high risk , antepartum Take 1 tablet by mouth 1 (one) time each day 30 tablet 11 06/10/19 25 025 Discontinu ed(Reorder ) Active Problems Problem Noted Date Diagnosed Date ASCUS of cervix with negative high risk HPV 08/2024 Overview (06/09/2024): 06/09/24 ASCUS/HPV neg [ ] cotest in 3 years Yeast infection 06/07/2024 Overview (06/07/2024): 06/07/24 at time of NOB, Rx sent for treatment HLA B27 (HLA B27 positive) 05/31/2024 Overview (06/07/2024): No symptoms--> recommended bASA in Depression 05/31/2024 Supervision of high risk , antepartum 0 05/31/2024 Overview (06/07/2024): bASA recommended for nulliparity/autoimmune dx--> recommend rediscussion at 12 weeks New OB Lab Results Lab Results Component [...] gestation between December to April.): Other seizures 08/13/2023 Overview (10/06/2023): Patient notes a history of seizures which [...] seizure threshold. Nondependent opioid abuse in remission Overview (10/06/2023): 08/13/2023: On suboxone for 4 years, previously on Buprenorphine/naloxone 2 mg twice daily but tried tapering off on her own. Did well on 2 mg daily, but then when she stopped this had bad withdrawal symptoms so presented to the ED on 07/26/2023. Was prescribed [...] down to 2 mg and then discontinue it completely. She feels that it is starting to [...] 02/01/2021 History of hepatitis C virus infection Overview (06/09/2024): Positive HCV antibody in 01/[address] [facility]. Initially viral load 32756, eventually negative viral load in 08/2020. Cleared infection. She reports treatment. 06/07/24 Hep C ab ordered, will likely be positive and viral load will be ordered --> RNA undetectable HIV antibody positive 01/12/2020 Overview (06/07/2024): Hx of IVDU, including sharing needles. HIV antibody positive on 01/10/2020. Pt informed 01/12/2020. Confirmatory testing via both differentiation and RNA negative one two separate occassions. This means antibody testing was false positive. 06/07/24 HIV Ag ordered Generalized anxiety disorder 01/22/2019 Overview (06/07/2024): Stable. Currently on Prozac Polysubstance abuse 01/22/2019 Overview (06/07/2024): History of opioid use disorder, no use for years. Discontinued suboxone last summer Severe benzodiazepine use disorder 01/22/2019 Overview (06/07/2024): Historically and recently Jan 2023 was given short course of prescription lorazepam for severe adjustment anxiety, relapsed on several illicit substances (meth, cocaine), as well as other benzodiazepines were found in her system (xanax, possible diazepam). Recommendation to NOT given benzodiazepines in outpatient setting. Estimated Date of Delivery Comme nts Yes 01/17/2025 Based on Ultraso und Resolved Problems Problem Noted Date Diagnosed Date Resolved Date Severe episode of recurrent major depressive disorder, without psychotic features 09/02/202306/2024 Overview (10/06/2023): 08/21/2023 2:04 PM 08/28/2023 4:40 PM 08/29/2023 2:36 PM PHQ9 Score PHQ-9 Total Score (max 27) 9 18 18 18 Opioid use disorder, severe, in early remission, on maintenance therapy 02/01/20212024 Overview (10/25/2021): MAT clinic intake 01/04/2022. History of IV heroin use. Discontinued Suboxone May 2020. Relapsed on heroin approximately August 2021. Restarted Suboxone September 2021. Dose increased due to cravings 10/05/2021 and 10/12/2021 Daily dose: 20 mg Follow-up 2 weeks History of hepatitis C 01/10/202010/05 Overview (08/21/2020): Hx of IVDU, including sharing needles. Hep C antibody positive on 01/10/2020. Hep C quant RNA 10k, repeat persistent. HIV antibody positive but both confirmatory and viral load negative on repeat tests so no co-infection, ok to treat without GI referral. Labs normal except LFT elevation. FIB-4 score calculated at 1.07 (low risk for fibrosis). Epclusa approved, started and tolerated well. Hep C viral load after finishing Epclusa was undetectable. LFTs also returned to normal. Generalized anxiety disorder 01/05/2020 02/01/2021 Overview (01/06/2020): Currently on venlafaxine, but doesn't feel that it is working so wanting med management. Most recent QUINTON-7 from 01/05/2020 was 17. Prior therapy but none currently. Opioid use disorder 01/05/2020 06/08/19 25 Overview (05/09/2023): Inducted on suboxone in MAT clinic 01/05/2020. Graduated from [facility] 02/09/2020, Graduated Outpatient at [facility]. Dose reduced to 2mg daily. Relapse February 2023 and now at [facility] Total daily dose:4mg Follow-up: 2 weeks Assessment & Plan (01/26/2020 2:18 PM CDT): It was a pleasure to visit with Jamar today. She has been tolerating the Suboxone at 24 mg but wishes to switch to 12 mg films Progress: doing well in her programing, feels she has reached a place of acceptance with regard to her lab results Concerns: poor sleep Last UDS results: as expected Today's Plan: switch to 12-3 mg films; 2 films daily. Will contact patient with HIV confirmatory results as they are available. Discussed options for enhanced sleep including referral to sleep medicine, establishing primary care, referral to psychiatry for assessment and management, and/or starting a trial of non- hypnotic sleep aid such as trazodone, hydroxyzine, amitriptyline, etc. Jamar will think about these options and discuss with Dr. Guevara at next visit in 2 weeks. Assessment & Plan (01/12/2020 3:45 PM CDT): Started on 16mg, but still having cravings so increased to 20mg total daily dose (16mg in AM, 4mg in PM). Assessment & Plan (01/06/2020 9:50 AM CDT): Meets criteria for opioid use disorder as above. Not currently in withdrawal as last use was 1 week prior. Given 4mg film today in clinic, tolerated well. Instructed to take an 8mg dose tonight and then 16mg daily total (either once daily or 8mg in AM and 8mg in PM). Will return in 5 days for follow-up appt and labs beforehand (ordered). Major depression 04/22/2019 01/10/[address] 01/22/2019 Overview (01/10/2020): Left arm. Placed 01/22/2019 Alcohol use disorder, severe , in early remission 01/22/2019 02/01/2021 Polysubstance dependence 01/03/201506/2024 Overview (10/06/2023): IVDU, heroin, LSD, marijuana, benzodiazepine, alcohol, opioid use. Tested positive for hepatitis C, which has resolved. Currently only substance use is vaping nicotine. Last heroin use 2 years ago. Tobacco abuse 12/29/2014 06/07/2024 Encounters Date Type Department Care Team Description 07/07/2024 3:15 PM CDT Lab [facility] [address] [place] [phone] Supervision of high risk , antepartum 07/07/2024 2:45 PM CDT Routine [facility] [address] [place] [phone] Jasmyn Gray, MECHANIC/WELDER CNM Supervision of high risk , antepartum (Primary Dx); HLA B27 (HLA B27 positive); ASCUS of cervix with negative high risk HPV; History of hepatitis C virus infection; Yeast infection; 12 weeks gestation of 06/11/2024 4:20 PM HOG SCRAPER Office Visit Family Medicine 4th Floor [address] [place] [address] Virginia Mendoza MD Acute nonintractable headache, unspecified headache type (Primary Dx); Moderate episode of recurrent major depressive disorder (HCC); Supervision of high risk , antepartum 06/08/2024 Telephone [facility] [address] [place] [phone] Heather Blum MD Critical Lab Results 06/07/2024 1:00 PM HOG SCRAPER Initial [facility] [address] [place] [address] Heather Blum MD GA: [id number] 06/07/2024 Orders Only [facility] [address] [place] [address] [phone] Heather Blum MD History of hepatitis C virus infection (Primary Dx) 06/07/2024 Orders Only [facility] [address] [place] [phone] Heather Blum MD Yeast infection (Primary Dx) 06/02/2024 1:10 PM HOG SCRAPER - 06/02/2024 11:59 PM HOG SCRAPER Hospital Encounter [facility] Hospital Ultrasound [address] [place] [address] Discharge Disposition: Home or Self Care 05/31/2024 1:40 PM HOG SCRAPER Office Visit [facility] [address] [place] [phone] Jasmyn Gray, LUIS M CNM Supervision of high risk , antepartum (Primary Dx); test positive; Immunization due 05/31/2024 10:30 AM HOG SCRAPER Clinical Support [facility] [address] [place] [phone] 05/27/2024 Orders Only [facility] [address] [place] [address] [phone] Elsie Baker MD Date of last menstrual period (LMP) unknown (Primary Dx) 05/26/2024 1:15 PM HOG SCRAPER Lab [facility] [address] [place] [address] [phone] test positive 05/26/2024 Telephone [facility] [address] [place] [address] [phone] Elsie Baker MD Positive test; Letter for School/Work 05/14/2024 Telephone [facility] Room [address] [place] [address] [phone] Claudette Kruger MD 05/13/2024 7:40 PM HOG SCRAPER - 05/13/2024 8:51 PM HOG SCRAPER Emergency [facility] Emergency Room [address] [place] [address] [phone] Pain, dental (Primary Dx) Discharge Disposition: Home or Self Care 05/13/2024 Travel from Last 3 Months Immunizations Name Administration Dates Next Due COVID-19, mRNA, LNP-S, PF, 100mcg/0.5mL dose Moderna 02/18/2021,01/21/2021 DTP 07/13/1996,02/10/1995 DTP / HiB 1994,1994 DTaP 09/20/1999 HPV 9-Valent 04/22/2019 Hep B, Adolescent or Pediatric 05/19/1995,1994,1994 Hepatitis A 01/22/2019 Hepatitis B 01/22/2019 HiB 01/12/1996,02/10/1995 IPV 09/20/1999, 5,1994,1994 Influenza 6mo-64yrs Quad Pre servative Free IM 01/22/2019 Influenza, Unspecified 02/14/2019 MMR 09/20/1999,10/03/1995 Td, Unspecified 11/27/2005 Tdap 10/10/2010 Varicella 04/25/2023,01/12/1996 Family History Medical History Relation Comments Hypertension Father Breast cancer Maternal Grandmother Cancer Maternal Grandmother Drug abuse Mother's Sister Relation Status Comments Father Maternal Grandmother Mother's Sister Social History Tobacco Use Types Packs/Day Years [...] from your doctor or pharmacy? Never 06/07/2024 [facility] Utilities Answer Date Recorded In the past 12 months has e [employer], [employer], oil, or water [employer] threatened to shut off services in your [...] How often do you attend chur or gnosticist services? Never 06/07/2024 Do you belong to any clubs o r organizations such as mormon groups, unions, [employer] or athletic groups, or school groups? No [...] Date Recorded PHQ-9 Total Score 3 06/07/2024 [facility] - Occupational Stress Questionnaire Answer Date [...] any time in the past 12 m [facility], were you homeless or living in [...] file Not on file Not on file Last Filed Vital Signs Vital Sign Reading Time Taken Comments Blood Pressure 134/78 07/07/2024 2:24 PM CDT Pulse 87 06/11/2024 3:31 PM HOG SCRAPER Temperature 36.5 C (97.7 F) 06/11/2024 3:31 PM HOG SCRAPER Respiratory Rate 18 06/11/2024 3:31 PM HOG SCRAPER Oxygen Saturation 100% 06/11/2024 3:31 PM HOG SCRAPER Inhaled Oxygen Concentration - - Weight 68.9 kg (151 lb 12.6 oz) 07/07/2024 2:24 PM CDT Height 165.1 cm (5' 5) 05/31/2024 10:3 5 AM HOG SCRAPER Body Mass Index 25.26 05/31/2024 10:35 AM HOG SCRAPER Plan of Treatment Upcoming Encounters Date Type Department Care Team (Late st Contact Info) Description 08/04/2024 1:30 PM CDT Routine [facility] [address] [place] [address] [phone] Heather Blum MD [address] [place] [address] [phone] Health Maintenance Due Date Last Done Comments Pneumococcal Vaccine: Pediatrics (0 to 5 Years) and At-Risk Patients (6 to 49 Years) (1 of 2 - PCV) 2013 HPV Vaccines (2 - Risk 3-dose series) 05/20/2019 04/22/2019 DTaP,Tdap,and Td Vaccines (7 - Td or Tdap) 10/10/2020 10/10/2010, 11/27/2005, 09/20/1999, Additional history exists Influenza Vaccine (#1) 2024 02/14/2019, 2018 Postponed from 12/07/2023 (Patient Preference) COVID-19 Vaccine (3 - Moderna risk series) 05/30/2025 02/18/2021, 01/21/2021 Postponed from 03/18/2021 (Patient Preference) Pap Smear 06/08/2027 06/07/2024 Procedures Procedure Name Priority Date/Time Associated Diagnosis Comments ADD-ON TEST REQUEST Routine 06/07/2024 6 :01 PM HOG SCRAPER History of hepatitis C virus infection HCV RNA DETECT/QUANT, S Routine 06/07/2024 1:53 PM HOG SCRAPER ABO/RH (GEL) Routine 06/07/2024 1:53 PM HOG SCRAPER Supervision of high risk , antepartum ANTIBODY SCREEN (GEL) Routine 06/07/2024 1:53 PM HOG SCRAPER Supervision of high risk , antepartum CBC Routine 06/07/2024 1:53 PM HOG SCRAPER Supervision of high risk , antepartum HEPATITIS B SURFACE ANTIGEN Routine 06/07/2024 1:53 PM HOG SCRAPER Supervision of high risk , antepartum HEPATITIS C ANTIBODY Routine 06/07/2024 1:53 PM HOG SCRAPER Supervision of high risk , antepartum HIV 1 & 2 AG AND AB, 4TH GEN, SCREEN Routine 06/07/2024 1:53 PM HOG SCRAPER Supervision of high risk , antepartum RPR Routine 06/07/2024 1:53 PM HOG SCRAPER Supervision of high risk , antepartum RUBELLA ANTIBODY, IGG Routine 06/07/2024 1:53 PM HOG SCRAPER Supervision of high risk , antepartum URINE SCREEN Routine 06/07/2024 1:38 PM HOG SCRAPER Supervision of high risk , antepartum MOLECULAR VAGINITIS/VAGINOSIS PANEL Routine 06/07/2024 1:29 PM HOG SCRAPER Vaginal discharge HPV HIGH RISK DNA DETECTION WITH GENOTYPING Routine 06/07/2024 1:21 PM HOG SCRAPER Supervision of high risk , antepartum PAP TEST Routine 06/07/2024 1:21 PM HOG SCRAPER Supervision of high risk , antepartum CHLAMYDIA AND NEISSERIA BY PCR Routine 06/07/2024 1:21 PM HOG SCRAPER Supervision of high risk , antepartum US OB LESS THAN 14 WEEKS INCLUDING TRANSVAGINAL Routine 06/02/2024 1:38 PM HOG SCRAPER Date of last menstrual period (LMP) unknown HCG, QUANTITATIVE, Routine 05/26/2024 1:15 PM HOG SCRAPER test positive from Last 3 Months Results * Add-On Test Request (06/07/2024 6:01 PM HOG SCRAPER) Add-on Testing SEE BELOW 06/07/2024 8:34 PM HOG SCRAPER [facility] Comment: HCV RNA detect/quant added 06/07/2024 6:01 PM HOG SCRAPER 06/07/2024 6:01 PM HOG SCRAPER Heather Blum MD LAB BLOOD ORDERABLES Final Result Performing Organization Address [facility] de Phone Number [facility] [address] [place] [phone] * HIV 1 & 2 Ag and Ab, 4th Gen, Screen (06/07/2024 1:53 PM HOG SCRAPER) Pathologist [facility] HIV 1 & 2 Ag and Ab, 4th Gen, Screen NON-REACT SARAH Non-React sarah 06/07/2024 3:46 PM HOG SCRAPER [facility] Comment: The results from this or [...] testing. Blood (Blood, Venous) 06/07/2024 1:53 PM HOG SCRAPER 06/07/2024 2:47 PM HOG SCRAPER Heather Blum MD LAB BLOOD ORDERABLES Final Result Performing Organization Address [facility] de Phone Number [facility] [address] [place] [address] * Antibody Screen (Gel) (06/07/2024 1:53 PM HOG SCRAPER) Pathologist [facility] Antibody Screen NEG 06/07/2024 4:08 PM HOG SCRAPER [facility] Blood (Blood, Venous) 06/07/2024 1:53 PM HOG SCRAPER 06/07/2024 2:56 PM HOG SCRAPER Heather Blum MD LAB BLOOD BANK TEST ORDERAB LES Final Result Performing Organization Address [facility]/ZIP Co de Phone Number [facility] [address] [place] [phone] * ABO/Rh (Gel) (06/07/2024 1:53 PM HOG SCRAPER) [facility] ABO/Rh A POS 06/07/2024 4:02 PM HOG SCRAPER [facility] Blood (Blood, Venous) 06/07/2024 1:53 PM HOG SCRAPER 06/07/2024 2:56 PM HOG SCRAPER Heather Blum MD LAB BLOOD BANK TEST ORDERAB LES Final Result Performing Organization Address [facility] de Phone Number [facility] [address] [place] [address] [phone] * HCV RNA detect/quant, serum (06/07/2024 1:53 PM HOG SCRAPER) [facility] HCV RNA Detect/Quant, S Undetected Undetected IU/mL 06/09/2024 4:46 PM HOG SCRAPER [facility] Comment: Result in log IU/mL is Undetected. ADDITIONAL INFORMATION The quantification range of this assay is 15 to 100,000,000 IU/mL (1.18 log to 8.00 log IU/mL). Testing was performed using the paul HCV test ([employer] Test Performed by: [facility] [place] [address] [employer] Machine Heater: Vish Sol Ph.D.; CLIA# [id number] 06/07/2024 1:53 PM HOG SCRAPER 06/08/2024 7:11 AM HOG SCRAPER Narrative [facility] - 06/09/2024 4:46 PM HOG SCRAPER Called to Charline Velasco, REACTIVE HCVO, RBA. , , 09:16 06/08/2024 TPH Heather Blum MD LAB BLOOD ORDERABLES Final Result Performing Organization Address [facility]/ZIP Co de Phone Number [facility] [address] [place] [address], * (ABNORMAL) Hepatitis C antibody (06/07/2024 1:53 PM HOG SCRAPER) Hepatitis C Antibody REACTIVE( AA) Non-React sarah 06/07/2024 5:44 PM HOG SCRAPER [facility] Comment: Reportable Disease Agent. Electronically Reported to [facility]. It is recommended by the CDC that [...] testing. Blood (Blood, Venous) 06/07/2024 1:53 PM HOG SCRAPER 06/07/2024 2:56 PM HOG SCRAPER Heather Blum MD LAB BLOOD ORDERABLES Final Result Performing Organization Address City/[facility]/ZIP Co de Phone Number [facility] [address] [place] [address] * (ABNORMAL) Rubella antibody, IgG (06/07/2024 1:53 PM HOG SCRAPER) Pathologist [facility] Rubella IgG NON-REACT SARAH(A) SEE BELOW 06/07/2024 4:22 PM HOG SCRAPER [facility] Comment: A reactive result indicates either [...] testing. Blood (Blood, Venous) 06/07/2024 1:53 PM HOG SCRAPER 06/07/2024 2:56 PM HOG SCRAPER Heather Blum MD LAB BLOOD ORDERABLES Final Result Performing Organization Address [facility]/ZIP Co de Phone Number [facility] [address] [place], [place] [id number] * RPR (06/07/2024 1:53 PM HOG SCRAPER) [facility] RPR NON-REACTI VE Non-reacti ve 06/07/2024 9:18 PM HOG SCRAPER [facility] Blood (Blood, Venous) 06/07/2024 1:53 PM HOG SCRAPER 06/07/2024 2:56 PM HOG SCRAPER Heather Blum MD LAB BLOOD ORDERABLES Final Result Performing Organization Address City/[facility]/ZIP Co de Phone Number [facility] [address] [place] [address] * Hepatitis B surface antigen (06/07/2024 1:53 PM HOG SCRAPER) Pathologist [facility] Hep. Bs Antigen (HBsAg) NON-REACT SARAH Non-React sarah 06/07/2024 4:22 PM HOG SCRAPER [facility] Comment: The results from this or [...] testing. Blood (Blood, Venous) 06/07/2024 1:53 PM HOG SCRAPER 06/07/2024 2:56 PM HOG SCRAPER us Heather Blum MD LAB BLOOD ORDERABLES Final Result [facility] [address] [place] [address] * (ABNORMAL) CBC ([employer]) (06/07/2024 1:53 PM HOG SCRAPER) WBC 10.6(H) 3.5 - 10.5 K/uL 06/07/2024 3:06 PM [facility] RBC 4.31 3.90 - 5.00 M/uL 06/07/2024 3:06 PM [facility] Hemoglobin 12.6 12.0 - 15.5 g/dL 06/07/2024 3:06 PM [facility] Hematocrit 37.9 35.0 - 44.0 % 06/07/2024 3:06 PM [facility] Platelets 314 150 - 450 K/uL 06/07/2024 3:06 PM [facility] MCV 87.9 81.6 - 98.3 fL 06/07/2024 3:06 PM [facility] MCH 29.2 26.0 - 32.0 pg 06/07/2024 3:06 PM [facility] MCHC 33.2 32.0 - 36.0 g/dL 06/07/2024 3:06 PM [facility] RDW 13.2 11.9 - 15.5 % 06/07/2024 3:06 PM [facility] NRBC %, Automated 0 % 06/07/2024 3:06 PM [facility] NRBC Absolute, Autmated 0.00 K/uL 06/07/2024 3:06 PM HOG SCRAPER [facility] Comment: 0-4 Days: 0.01 -0.02 >=5 Days: 0.00 Blood (Blood, Venous) 06/07/2024 1:53 PM HOG SCRAPER 06/07/2024 2:56 PM HOG SCRAPER Heather Blum MD LAB BLOOD ORDERABLES Final Result Performing Organization Address [facility] Co de Phone Number [facility] [address] [place], [place] [id number] * Urine Screen (06/07/2024 1:38 PM HOG SCRAPER) [facility] Urine Screen No Growth 06/08/2024 12:19 PM HOG SCRAPER [facility] Urine (Urine, Clean Catch) 06/07/2024 1:38 PM HOG SCRAPER 06/07/2024 2:58 PM HOG SCRAPER Comment:Urine Screen Heather Blum MD LAB MICROBIOLOGY - GENERAL ORDERABLES Final Result Performing Organization Address [facility] Co de Phone Number [facility] [address] [place] [address] * (ABNORMAL) Molecular Vaginitis/Vaginosis Panel (06/07/2024 1:29 PM HOG SCRAPER) Pathologist [facility] Bacterial Vaginosis NEGATIVE Negative 06/07 4:23 PM HOG SCRAPER [facility] Liliana species group DETECTED(A) Not Detected 06/07/2024 4:23 PM HOG SCRAPER [facility] Liliana glabrata/krusei NOT DETECTED Not Detected 06/07/2024 4:23 PM [facility] Trichomonas vaginalis NOT DETECTED Not Detected 06/07/2024 4:23 PM [facility] Comment: Interpret results in conjunction with other laboratory and clinical data. Testing performed on the [employer] GeneXpert using real-time PCR for the amplification of specific DNA targets utilizing fluorogenic, target-specific hybridization probes to detect and differentiate DNA from organisms associated with: *Bacterial vaginosis: Atopobium spp.(Atopobium vaginae, Atopobium novel species CCUG [id number]), Bacterial Vaginosis-Associated Bacterium 2 (BVAB2), and Megasphaera-1 *Liliana spp.(C. albicans, C. tropicalis,C. parapsilosis, C. dubliniensis, species not differentiated) *Liliana glabrata/Liliana krusei (species not differentiated) *Trichomonas vaginalis The following organisms may cross-react with the MVP assay: Liliana orthopsilosis, Pentatrichomonas hominis, and Trichomonas tenax. Test has not been evaluated in patients less than 14 years of age. Swab (Vagina) 06/07/2024 1:2 9 PM HOG SCRAPER 06/07/2024 2:58 PM HOG SCRAPER us Heather Blum MD LAB MICROBIOLOGY - GENERAL ORDERABLES Final Result [facility] [address] [place] [address] * HPV High Risk DNA Detection with Genotyping (06/07/2024 1:21 PM HOG SCRAPER) Source Cx/Endocerv ix 06/08/2024 6:27 PM HOG SCRAPER [facility] HPV Type 16 Negative Negative 06/08/2024 6:27 PM HOG SCRAPER [facility] HPV Type 18 Negative Negative 06/08/2024 6:27 PM HOG SCRAPER [facility] HPV non-Type 16 or 18 Negative Negative 06/08/2024 6:27 PM HOG SCRAPER [facility] Comment: The following Other High Risk HPV types were not detected: 31, 33, 35, 39, 45, 51, 52, 56, 58, 59, 66, and 68. ADDITIONAL INFORMATION Testing was performed using the paul HPV assay ([employer] This report is intended for use in clinical monitoring and management of patients. It is not intended for use in medical-legal applications. This test has been modified from the bill distributor's instructions. Its performance characteristics were determined by [facility] in a manner consistent with CLIA requirements. This test has not been cleared or approved by the U.S. Food and Drug Administration. Test Performed by: [facility] [address] [facility], [place] [address] Spike Machine Heater: Vish Sol Ph.D.; CLIA# [id number] Pap collection bottle 06/07/2024 1:21 PM HOG SCRAPER 06/07/2024 2:23 PM HOG SCRAPER us Heather Blum MD LAB CYTOLOGY ORDERABLES Fin al Result [place] [id number] [place] [address], * Chlamydia and Neisseria by PCR (06/07/2024 1:21 PM HOG SCRAPER) Chlamydia trachomatis NOT DETECTED Not Detected 06/07/2024 5:02 PM [facility] Source Endocervix 06/07/2024 1:58 PM [facility] Comment: Test performed using [employer] GeneXpert (real-time PCR for detection and differentiation [...] NOT DETECTED Not Detected 06/07/2024 5:02 PM [facility] Source Endocervix 06/07/2024 1:58 PM [facility] Comment: Test performed using [employer] GeneXpert (real-time PCR for detection and differentiation [...] and clinical data. Swab 06/07/2024 1:21 PM HOG SCRAPER 06/07/2024 2:58 PM HOG SCRAPER us Heather Blum MD LAB BODY FLUIDS AND STOOLS ORDERABLES Final Result [facility] [address] [place] [id number] * (ABNORMAL) Pap Smear (06/07/2024 1:21 PM HOG SCRAPER) Sure Path PAP, screen 06/07/2024 1:21 PM HOG SCRAPER 06/07/2024 2:24 PM HOG SCRAPER Narrative [facility] - 06/09/2024 2:18 PM HOG SCRAPER [address] [address] Patient: JAMAR AYALA Procedure: 06/07/2024 13:21 /Age/Sex: 1995, 28 Y, F Received: 06/07/2024 14:24 Billin Patient Location: [facility]PER[facility]inc Ordered by: HEATHER BLUM MD Attending: HEATHER BLUM MD AUTOMOTIVE ENGINEERING TECHNICIAN CYTOLOGY FINAL REPORT SPECIMEN: (A) SURE PATH [...] Signed By: ETELVINA KEARNEY MD <Sign Out Signature> Reported: 06/09/2024 Page 1 of 1 us Heather Blum MD LAB CYTOLOGY ORDERABLES Fin al Result [facility] [address] [place] [address] * Ultrasound OB less than 14 weeks including transvaginal (06/02/2024 1:38 PM HOG SCRAPER) Anatomical Region Laterality Modality Body, Pelvis Ultrasound Impressions 06/02/2024 1:49 PM HOG SCRAPER There is a single live 1.09 cm 7w2d intrauterine gestation with heart rate of 128 bpm. Narrative 06/02/2024 1:49 PM HOG SCRAPER INDICATION: dating ultrasound COMPARISON: None available FINDINGS: There is a single live intrauterine gestation with crown-rump length of 1.09 cm 7w2d and heart rate of 128 bpm. The mean gestational sac diameter is 2.20 cm. No evidence of subchorionic hemorrhage. Cervical length is within normal limits, measuring 2.87 cm. The uterus measures 7.7 cm x 5.7 cm x 5.0 cm. Ultrasound KISHORE is 01/17/2025. Right ovary/adnexa: The right ovary measures 1.5 cm x 2.8 cm x 2.3 cm. Right ovarian volume is 5.06 cc. No right ovarian or extra-ovarian mass. Left ovary/adnexa: The left ovary measures 1.6 cm x 3.1 cm x 2.7 cm. Left ovarian volume is 6.86 cc. There is a 0.8 x 0.7 x 0.5 cm simple cyst in the left ovary, consistent with a corpus luteum. No left extra-ovarian mass. Free pelvic fluid: No. Procedure Note Kaitlin Watts MD - 06/02/2024 INDICATION: dating ultrasound COMPARISON: None available FINDINGS: There is a single live intrauterine gestation with crown-rump length of1.09 cm 7w2d and heart rate of 128 bpm. The mean gestational sac diameteris 2.20 cm. No evidence of subchorionic hemorrhage. Cervical length iswithin normal limits, measuring 2.87 cm. The uterus measures 7.7 cm x 5.7cm x 5.0 cm. Ultrasound KISHORE is 01/17/2025. Right ovary/adnexa: The right ovary measures 1.5 cm x 2.8 cm x 2.3 cm.Right ovarian volume is 5.06 cc. No right ovarian or extra-ovarianmass. Left ovary/adnexa: The left ovary measures 1.6 cm x 3.1 cm x 2.7 cm. Leftovarian volume is 6.86 cc. There is a 0.8 x 0.7 x 0.5 cm simple cyst inthe left ovary, consistent with a corpus luteum. No left extra-ovarianmass. Free pelvic fluid: No. IMPRESSION: There is a single live 1.09 cm 7w2d intrauterine gestation with heart rateof 128 bpm. us Elsie Baker MD IMG OB US PROCEDURES Final R esult * hCG, quantitative, (05/26/2024 1:15 PM HOG SCRAPER) [facility] Total Beta hCG 21,343 mIU/mL 05/26/2024 4:13 PM HOG SCRAPER [facility] Comment: Female Reference Range: Negative: <5 Indeterminate: 5-24 *Suggest retest if clinically indicated Positive: >=25 The results from this or any other diagnostic test should be used and interpreted only in the context of the overall clinical picture. Biotin levels in serum remain elevated for up to 24 hours after oral or intravenous biotin administration and may interfere with this assay to produce unreliable results. Heterophilic antibodies in serum or plasma samples may cause interference in immunoassays. Exposure to animal antigens, either in the environment or as part of treatment or imaging procedures, may have circulating anti-animal antibodies present. These antibodies may interfere with the assay reagents to produce unreliable results. Results which are inconsistent with clinical observations indicate the need for additional testing. Blood (Blood, Venous) 05/26/2024 1:15 PM HOG SCRAPER 05/26/2024 2:20 PM HOG SCRAPER us Elsie Baker MD LAB BLOOD ORDERABLES Final R esult [facility] [address] [place] [address] from Last 3 Months Insurance [facility] Care Teams Endocrinology Physician Relationship Specialty Start Date End Date Virginia Mendoza MD [address] [place] [phone] PCP - General Family Medicine 10/06/23
--- OUTSIDE RECORDS SUMMARY | 2024-07-08 20:46 | XMS_ITS | Encounter Summary ---
Author Organization [facility] er Address [address] [place] [id number] Care Team Providers Care Camp Dishwasher Name Role Phone Virginia Mendoza MD Primary Care Provider Reason for Visit * Reason Onset Date Comments Critical Lab Results 06/08/2024 Encounter Details Date Type Department Care Team (Late st Contact Info) Description 06/08/2024 Telephone [facility] Education Reviewer [address] [place] [phone] [place] [address] [place] [phone] Critical Lab Results Social History Tobacco Use Types Packs/Day Years [...] from your doctor or pharmacy? Never 06/07/2024 [facility] Utilities Answer Date Recorded In the past 12 months has [facility] electric, gas, oil, or water company threatened [...] How often do you attend chur or uatsdin services? Never 06/07/2024 Do you belong to any clubs o r organizations such as lutheran groups, unions, fraternal or athletic groups, or [...] Date Recorded PHQ-9 Total Score 3 06/07/2024 [facility] Occupat ional Health - Occupational Stress [...] place to sleep or slept in a care home (including now)? No 02/11/2023 Housing Stability Vital [...] any time in the past 12 m [facility], were you homeless or living in a care home (including now)? No 06/07/2024 Education Answer Date [...] on file documented as of this encounter Miscellaneous Notes * Telephone Encounter - Heather Ramirez MD - 06/08/2024 1:38 PM TEST DESKMAN Known h/o hep C. Will order viral load. DESKMAN * Telephone Encounter - Lauryn Cui RN - 06/08/2024 9:15 AM CST Critical or significant lab resulted Name of Test: HCV RNA detect Result/Value: Reactive Result received Date: 06/08/2024 Time: 09:15 Name of Lab Personnel: [place] Critical or significant lab result reported to clinician Dr. Ramirez via phone DESKMAN documented in this encounter Plan of Treatment Upcoming Encounters Date Type Department Care Team (Late st Contact Info) Description 08/04/2024 1:30 PM CDT Routine [facility] Education Reviewer [address] [place] [phone] [place] [address] [place] [phone] documented as of this encounter Visit Diagnoses Not on filedocumented in this encounter Care Teams Camp Dishwasher Relationship Specialty Start Date End Date Virginia Mendoza MD [address] [place] [phone] PCP - General Family Medicine 10/06/23 documented as of this encounter
--- OUTSIDE RECORDS SUMMARY | 2024-07-08 20:46 | XMS_ITS | Clinical Summary ---
Author Organization [facility] Address [address] [place] [address] Care Team Providers Care Tuber Machine Operator Name Role Phone Unknown, Physician Primary Care Provider [phone] Source Comments You are receiving this document as you are listed as the primary care provider,follow-up provider, or the patient has been referred to you for consultation.This is in compliance with the Medicare and[facility] Hospital[facility] EHR Incentive Program,which states Providers who transition their patient to another setting of careor provider of care or refers their patient to another provider of care shouldprovide summary care record for each transition of care or referral. [facility] Allergies No known active allergies Medications * This document contains information received from the source organization and may not represent a complete record from that organization. tretinoin (RETIN-A) 0.025 % creamIndication s:Acne Vulgaris Apply to dry face, shoulders, back, chest at bedtime, wash off in morning Indications: Common Acne 90 g 1 0 Active Additional Information Patient not taking.Reported on 10/25/2019 clindamycin (CLEOCIN T) 1 % external solution Apply to affected area on face, chest, back twice daily 60 mL 3 0 Active Additional Information Patient not taking.Reported on 10/25/2019 venlafaxine (AKA EFFEXOR XR) 225 MG 24 hour release tablet Take 1 Tablet by mouth daily. 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 Generalized anxiety disorder 04/23/2019 Major depression 04/22/2019 Immunizations Immunization Administration Dates Next Due 9vHPV (Gardasil 9) 04/22/2019 HepA Adult (19+ yrs) 01/22/2019 HepB Adult (Engerix-B, 20+ yrs, 3 dose series) 1 Influenza, Unspecified Formulation 02/14/2019, Family History Medical History Relation Name Comments No Known Problems Father No Known Problems Mother Depression Maternal Aunt Drug Abuse Maternal Aunt Cancer Maternal Grandfather Anxiety Maternal Grandmother Depression Maternal Grandmother Fibromyalgia Maternal Grandmother No Known Problems Maternal Uncle No Known Problems Paternal Aunt neurologic disorder Paternal Grandfather No Known Problems Paternal Grandmother No Known Problems Paternal Uncle No Known Problems Sister Relation Name Status Comments Father Alive Mother Alive Maternal Aunt Alive Maternal Grandfather Maternal Grandmother Alive Maternal Uncle Alive Paternal Aunt Alive Paternal Grandfather Alive Paternal Grandmother Alive Paternal Uncle Alive Sister Alive Social History Tobacco Use Types Packs/Day Years Used Date Smoking Tobacco: Every Day Cigarettes Smokeless Tobacco: Never Comments:vaping for the last 7 months, smoker for about 8 years before that Alcohol Use Standard Drinks/Week Comments Not Currently 0 (1 standard drink = 0.6 oz pur e alcohol) recovery, 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 Never 10/25/2019 Average Number of Drinks Not on file 020 Frequency of Binge Drinking Not on file 10/06 PHQ-2 Answer Date Recorded PHQ-2 Score 0 04/22/2019 Comments No Sex and Gender Information Value Date Recorded Sex Assigned at Not on file Legal Sex Female 4:54 PM CDT Gender Identity Not on file Sexual Orientation Not on file Last Filed Vital Signs Vital Sign Reading Time Taken Comments Blood Pressure 116/77 10/25/2019 2:55 PM CDT Pulse 83 10/25/2019 2:55 PM CDT Temperature 36.8 C (98.3 F) 10/25/2019 2:55 PM CDT Respiratory Rate 14 10/25/2019 2:55 PM CDT Oxygen Saturation - - Inhaled Oxygen Concentration - - Weight 60.9 kg (134 lb 3.2 oz) 10/25/2019 2:55 P M CDT Height 165.1 cm (5' 5) 04/22/2019 1:33 PM COTTON TIER Body Mass Index 22.33 04/22/2019 1:33 PM COTTON TIER Plan of Treatment Health Maintenance Due Date Last Done Comments Cervical Cancer Screening Due 1995 DTaP/Tdap/Td (1 - Tdap) 2013 Pneumococcal (1 of 2 - PCV) 2013 HepB (2) 02/19/2019 01/22/2019 HPV Vaccine (2 - 3-dose series) 05/20/2019 04/22/2019 Adult Preventive Visit 04/22/2021 04/22/2019 COVID-19 Vaccine (1 - 2023-2 5 season) 2023 Influenza (#1) 2023 02/14/2019, 01/22/2019 Zoster/Shingles (1 of 2) 2044 HepA Aged Out 01/22/2019 No longer eligi ble based on patient's age to complete this topic Chlamydia Discontinued 04/22/2019 HIV Screening (Preventive Services) Completed 04/22/2019 Hep C Screening (Preventive Services) Completed 04/22/2019 Hib Aged Out No longer eligi ble based on patient's age to complete this topic IPV (Polio) Aged Out No longer eligi ble based on patient's age to complete this topic MCV4 Aged Out No longer eligi ble based on patient's age to complete this topic Meningococcal B Aged Out No longer el igible based on patient's age to complete this topic Procedures Procedure Name Priority Date/Time Associated Diagnosis Comments HIV 1/2 AG/AB 4TH GEN Routine 04/22/2019 2:15 PM COTTON TIER Routine screening for STI (sexually transmitted infection) HEPATITIS C ANTIBODY, WITH REFLEX Routine 04/22/2019 2:15 PM COTTON TIER Routine screening for STI (sexually transmitted infection) CHLAMYDIA & GC (14 YEARS & OLDER) Routine 04/22/2019 2:15 PM COTTON TIER Routine screening for STI (sexually transmitted infection) from Last 3 Months or Most Recently Relevant to Health Maintenance Results * HIV 1/2 Ag/Ab 4th Generation (04/22/2019 2:15 PM COTTON TIER) HIV 1/2 Antigen/Anti body (4th generation) Negative (Non Reactive) Negative (Non Reactive) 04/22/2019 7:16 PM COTTON TIER [facility] Comment:HIV-1 p24 Antigen an d HIV-1/HIV-2 Antibody not detected Blood Venipuncture / Unknown 04/22/2019 2:15 PM COTTON TIER 04/22/2019 2:30 PM COTTON TIER Jeimy Knight MD LAB_1 Final Resul t Performing Organization Address [facility] Co de Phone Number [facility] [address] [phone] * Chlamydia & GC (14 Years and Older) (04/22/2019 2:15 PM COTTON TIER) [facility] Chlamydia Trachomatis STD Not Detected Not Detected 04/23/2019 11:53 AM COTTON TIER [facility] N. gonorrhoeae STD Not Detected Not Detected 04/23/2019 11:53 AM COTTON TIER [facility] Swab (Source Required) SPECIMEN FROM VAGINA / Unknown Non-blood Collection / Unknown 04/22/2019 2:15 PM COTTON TIER 04/22/2019 2:30 PM COTTON TIER Narrative [facility] - 04/23/2019 11:53 AM COTTON TIER Test performed by Molecular Detection Jeimy Knight MD LAB_1 Final Resul t Performing Organization Address [facility] de Phone Number [facility] [address] [place] [address] * Hepatitis C Antibody, with Reflex (04/22/2019 2:15 PM COTTON TIER) [facility] Hepatitis C Antibody Negative (Non Reactive) Negative (Non Reactive) 04/22/2019 7:28 PM COTTON TIER [facility] Comment:Antibodies to HCV no t detected. Does not exclude the possiblity of exposure to HCV. Blood Venipuncture / Unknown 04/22/2019 2:15 PM COTTON TIER 04/22/2019 2:30 PM COTTON TIER us Jeimy Knight MD LAB_1 Final Resul t [facility] [employer] [facility] [address] [address], [facility] [phone] from Last 3 Months or Most Recently Relevant to Health Maintenance Insurance BCBS OUT OF STATE [id number] [place] [id number] [employer] OUT OF STATE Member Subscriber Plan / Payer (Ef fective 2014-Present) Name:Jamar Ayala Relation to Subscriber:Child Name:SEGUN AYALA Date of :1954 (Home) Address: [address] [place] [place] [address] Payer ID:[id number] (NAIC) Type:Commercial Address: [address] [address] [place] [address] Care Teams Tuber Machine Operator Relationship Specialty Start Date End Date Unknown, Physician [address] [place] [address] PCP - General Internal Medicine 12/01/15
--- OUTSIDE RECORDS SUMMARY | 2024-07-08 20:46 | XMS_ITS | Encounter Summary ---
Author Organization [facility] er Address [address] [place] [address] Care Team Providers Care Senior Technical Support Analyst Name Role Phone Virginia Mendoza MD Primary Care Provider Encounter Details Date Type Department Care Team (Late st Contact Info) Description 07/07/2024 3:15 PM CDT Lab [facility] [address] [place] [phone] Supervision of high risk , antepartum Social [...] from your doctor or pharmacy? Never 06/07/2024 [facility] Utilities Answer Date Recorded In the past 12 months has [facility] [employer] gas, oil, or water [employer] threatened to shut off services in your [...] How often do you attend chur or cheondoism services? Never 06/07/2024 Do you belong to any clubs o r organizations such as alevism groups, unions, fraternal or athletic groups, or [...] Score 3 06/07/2024 [facility] - Occupational Stress [...] place to sleep or slept in a snf (including now)? No 02/11/2023 Housing Stability Vital [...] any time in the past 12 m [facility], were you homeless or living in a snf (including now)? No 06/07/2024 Education Answer Date [...] 08/04/2024 1:30 PM CDT Routine [facility] Resource Manager Forester [address] [place] [phone] [place] [address] [place] [phone] Pending Results Name Type Priority Associated Diagnoses Date /Time [id number] Lab Routine Supervision of high risk , antepartum 07/07/2024 3:32 PM CDT documented as of this encounter Visit Diagnoses Diagnosis Supervision of high risk , antepartum documented in this encounter Care Teams Senior Technical Support Analyst Relationship Specialty Start Date End Date Virginia Mendoza MD [address] [place] [phone] PCP - General Family Medicine 10/06/23 documented as of this encounter
--- OUTSIDE RECORDS SUMMARY | 2024-07-08 20:46 | XMS_ITS | Encounter Summary ---
Author Organization [facility] er Address [address] [place] [address] Care Team Providers Care Tool Shaper Setup Operator Name Role Phone Virginia Mendoza MD Primary Care Provider Reason for Visit * Reason Comments NOB Phone Call Telephone Visit Encounter Details Date Type Department Care Team (Late st Contact Info) Description 05/31/2024 10:30 AM ESCROW MANAGER Clinical Support [facility]'Count includes the [facility] Lighting Adviser [address] [place], [place] [address] Social History Tobacco Use Types Packs/Day Years [...] and Family Not on file 05/31/2024 Attends Amish Services Not on file 05/31 Active Member [...] Date Recorded PHQ-9 Total Score 0 05/31/2024 [facility] - Occupational [...] place to sleep or slept in a long term (including now)? No 02/11/2023 Housing Stability Vital Sign Answer Jordy e Recorded In the last 12 months, was t here a time when you were not able to pay the mortgage or rent on time? No 05/31/2024 In the past 12 months, how m any times have you moved where you were living? 0 05/31/2024 At any time in the past 12 m [facility], were you homeless or living in a long term (including now)? No 05/31/2024 Education Answer Date [...] Sign Reading Time Taken Comments Blood Pressure - - Pulse - - Temperature - - Respiratory Rate - - Oxygen Saturation - - Inhaled Oxygen Concentration - - Weight 65.8 kg (145 lb) 05/31/2024 10:35 AM ESCROW MANAGER Height 165.1 cm (5' 5) 05/31/2024 10:35 AM ESCROW MANAGER Body Mass Index 24.13 05/31/2024 10:35 AM ESCROW MANAGER documented in this encounter Patient Instructions * Patient Instructions* Dahiana Ng BSN - 05/31/2024 10:30 AM ESCROW MANAGER RN completed NOB phone call. Congratulations and thank you for choosing [facility] to provide care to you and your growing family! We wanted to send you out some basic information we would like you to know before your upcoming appointments. If you experience vaginal spotting orbleeding, pain, or other urgent concerns, please call us at [phone]- DO NOT send a MyChart message as these can take 24 hours (normal business days) to get a response. Things to plan for in the coming weeks: Your nurse phone call. We will go through your history, family history and screening forms. This helps get your chart ready for when you will see your OB provider! Your initial new OB appointment with your provider. Start to meet your healthcare team, have a physical exam, receive education about , and plan of care and lab work. At this appointment youmay also be able to hear your little one's heartbeat! Here is the web address for our online education platform called [email or web address]: please use this to find further information: [email or web address] Fish and Seafood Information Fish and seafood are great sources of healthy fats, such as [place]amo 3's and a lean protein. Some fishand seafood can contain higher levels of mercury, which can be harmful in large amounts. Please seethe following link information for amounts and types of fish and seafood to eat during . [email or web address] h Listeria Listeria is a food borne illness that can be harmful for you and baby. It is typically found in foods like deli meats, uncooked hot dogs, unpasteurized milk and cheeses, chang' and salads made at the grocery store. You can still have these products, making sure your milks and cheeses have been pasteurized, hot dogs and deli meats cooked until steaming and hot, chang' and salads made at home. Pleasesee the following link for more information. https://www.cdc.gov/listeria/risk-groups/-women.html Toxoplasmosis: Toxoplasmosis is a parasitic infection that can cause illness in moms and their unborn babies. It is spread through contact with contaminated soil, cat litter and unwashed fruits and vegetables. Ways to prevent infection include having someone else change / clean the litter box, wearing gloves when working with soil or gardening, washing hands before eating or washing your face, and washing fruits and vegetables before eating, cutting or cooking. Please see the following link for further information: https://www.cdc.gov/parasites/toxoplasmosis/gen_info/.html Agqr-hgg-Htrjiwa Medications Symptom Generic Medication Brand Name Examples Comments Headache/Fever/ Chills Acetaminophen Tylenol Do not take ibuprofen, aspirin, naprosyn Nasal/Sinus Congestion Oxymetazoline HCL Afrin Nasal [place] Avoid use > 3 days Saline [place] Pseudoephedrine HCL Sudafed Take immediate release product Cough Cough Drops Robitussin Guaifenesin Robitussin Guaifenesin/Dextromethorpan Robitussin DM Indigestion/ Heartburn Calcium Carbonate Maalox Tablets, Tums, Rolaids Short acting - provides immediate relief Magnesium Hydroxide Maalox Liquid Aluminum Hydroxide Mylanta Liquid Simethicone Gas-X Famotidine Pepcid AC Long acting - provides chcf relief Cimetidine Tagamet Omeprazole Prilosec Constipation Magnesium Hydroxide Milk of Magnesia Psyllium Metamucil Fibercon Allergies Chlorpheniramine Maleate Chlor - Trimeton Diphenhydramine Benadryl Loratadine Claritin/Alavert Vaginal Yeast Infections Clotrimazole Mycelex Miconazole Nitrate Monistat Skin Itching/Hives Calamine Calamine Colloidal Oatmeal Aveeno Pramoxine HCL/Calamine Caladryl 1% Hydrocortizone cream or ointment Short term use, < 14 days Vanicream Hemorrhoids Pramoxine HCL/Balsam Anusol Preparation H Stool Softener Docusate Sodium Colace Sleep Aids Doxylamine Unisom tablet Diphenhydramine Benadryl Acetaminophen and Diphenhydramine Tylenol PM Nausea Information: Many women experience nausea during their . Growing a baby is hard work! Please know that we are here to help answer questions as well, but these are some great ideas to get you feeling better. We do have a few other ideas about what you can do when you are feeling sick to your stomach duringpregnancy: 1. Les flavored candy (like Preggie Pops), les snap cookies, or les dee. 2. Quease EASE - This is a stick with essential oils in it that you smell. 3. Sea Band - A bracelet with a bead in it that presses in a special area on your wrist. 4. Vitamin B6 25mg four times a day with Unisom SLEEPTABS [doxylamine succinate], not SLEEPGELS [diphenhydramine, which is Benadryl, which won't hurt but might not help as much]: 50mg at bedtime 5. Try frequent, healthy snacking throughout the day. 6. Avoid spicy, greasy, and heavy foods. 7. Take your vitamin at the time of day when you don't feel sick to your stomach. 8. Keep dry cereal/crackers next to your bed and try those if you are feeling sick. If you are unable to keep down foods or fluids for over 24 hours, have been urinating less and the urine is dark in color you need to seek immediate medical attention. OW MANAGER documented in this encounter Progress Notes * Dahiana Ng BSN - 05/31/2024 10:30 AM CST New OB Intake Phone Call Patient's last menstrual period was 03/16/2024 (within days). Positive test date: 05/17/24; Beta hcg 21,343 on 05/26/24. Does the patient have nausea or vomiting? No Nutrition consult offered? No OB History Para Term AB Living 4 3 SAB IAB Ectopic Multiple Live Births 1 2 # Outcome Date GA Lbr Gianni/2nd Weight Sex Type Anes PTL Lv 4 Current 3 SAB 01/25/24 10w0d SAB 2 IAB TAB 1 IAB TAB History of previous (s): No History of loss - 2nd trimester or later: No Protocol initiated: Dating No orders of the defined types were placed in this encounter. Past Medical History: Thyroid Disorder: No Diabetes: No High Blood Pressure: No Low Weight: N/A Past Medical History: Diagnosis Date Anxiety Depression Gene mutation HLA-B27 Generalized anxiety disorder 01/05/2020 History of hepatitis C Completed treatment Major depression 04/22/2019 Opioid use disorder, severe, in sustained remission (HCC) 02/01/2021 Social anxiety disorder 02/01/2021 Withdrawal seizures (HCC) Social History: Tobacco use: Current, vaping, and declined smoking cessation referral. Alcohol use, after positive test: No. Drug use (including marijuana): No. History of substance abuse: History of polysubstance abuse including IV Heroin use. Reports being sober since 2021. 4 Ps Questionnaire Yes No Did any of your parents have a problem with alcohol or other drug use? X Does your partner have a problem with alcohol or drug use? X In the past, have you had difficulties in your life because of alcohol or other drugs, including prescription medications? X In the past month, have you drunk any alcohol or used other drugs? X Patient risk score based on 4 Ps responses: LOW RISK: The patient was given the 4 Ps screening tooland the score placed the patient into the low risk zone of use. Continued abstinence from drugs/alcohol was reinforced. Social History Socioeconomic History Marital status: Life Partner Spouse name: Arnulfo Quiles Highest education level: High school graduate Occupational History Occupation: Caregiver Comment: [employer] Tobacco Use Smoking status: Former Current packs/day: 0.25 Types: Cigarettes Passive exposure: Current Smokeless tobacco: Never Vaping Use Vaping status: Every Day Substances: Nicotine, Flavoring Devices: Disposable Substance and Sexual Activity Alcohol use: Not Currently Comment: History of alcohol use disorder Drug use: Not Currently Types: Heroin, IV Comment: Sober since 2021. Sexual activity: Yes Partners: Male Social History Narrative Jamar lives with her boyfriend/fob Baldev Quiles. This will be his first child as well. Social Drivers of Health Financial Resource Strain: Low Risk (05/31/2024) Overall Financial Resource Strain (CARDIA) Difficulty of Paying Living Expenses: Not hard at all Food Insecurity: No Food Insecurity (05/31/2024) Hunger Vital Sign Worried About Running Out of Food in the Last Year: Never true Ran Out of Food in the Last Year: Never true Transportation Needs: No Transportation Needs (05/31/2024) PRAPARE - Transportation Lack of Transportation (Medical): No Lack of Transportation (Non-Medical): No Physical Activity: Sufficiently Active (05/31/2024) Exercise Vital Sign Days of Exercise per Week: 5 days Minutes of Exercise per Session: 30 min Stress: No Stress Concern Present (05/31/2024) [place] [facility] - Occupational Stress Questionnaire Feeling of Stress : Only a little Social Connections: Unknown (05/31/2024) Social Connection and Isolation Panel [NHANES] Marital Status: Living with partner Intimate Partner Violence: Not At Risk (05/31/2024) Humiliation, Afraid, Rape, and Kick questionnaire Fear of Current or Ex-Partner: No Emotionally Abused: No Physically Abused: No Sexually Abused: No Housing Stability: Low Risk (05/31/2024) Housing Stability Vital Sign Unable to Pay for Housing in the Last Year: No Number of Times Moved in the Last Year: 0 Homeless in the Last Year: No Surgical History: Past Surgical History: Procedure Laterality Date APPENDECTOMY WISDOM TOOTH EXTRACTION Current medications Current Outpatient Medications on File Prior to Visit Medication Sig cholecalciferol (VITAMIN D-3) 50 MCG (2000 UT) tablet FLUoxetine (PROzac) 40 MG capsule Take 1 capsule (40 mg total) by mouth 1 (one) time each day folic acid (FOLVITE) 1 MG tablet MV-Min-Fe Fum-FA-DHA ( 1 PO) ibuprofen (ADVIL) 800 MG tablet Take 1 tablet (800 mg total) by mouth 3 (three) times a day if needed for mild pain (pain) for up to 30 doses Take with food. (Patient not taking: Reported on 05/31/2024) No current facility-administered medications on file prior to visit. Vitamins: Yes Allergies Allergies Allergen Reactions Buspirone Other (see comments) Sertraline Other (see comments) Pt reports a bad reaction to zoloft, however the reaction is unclear and occurred during a time of other drug use. Height: 1.651 m (5' 5) Weight: 65.8 kg (145 lb) Body mass index is 24.13 kg/m??. Health concerns: History of polysubstance abuse, History of Hepatitis C, Tobacco use, Anxiety, Depression Substance Anticipates delivery at [facility]: yes Established Lighting Adviser care in the past: No Preferred Provider: OB Services New OB Intake completed Next scheduled appointment at [facility] REPAIRING CALIBRATOR: 05/31/2024 New OB transfer from another organization: No Has patient previously given at [facility]? No Authorizing NOB protocol provider: Dr. 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 Her work requires a note in order to be assigned to a different client. Jamar states that she called on 05/26/24 and requested a note but was told she had to be seen first. She was assisted in scheduling an early concerns visit. OW MANAGER documented in this encounter Plan of Treatment Upcoming Encounters Date Type Department Care Team (Late st Contact Info) Description 08/04/2024 1:30 PM CDT Routine [facility]'s [facility] Lighting Adviser [address] [place] [address] Heather Ramirez MD [address] [place] [phone] documented as of this encounter Visit Diagnoses Not on filedocumented in this encounter Care Teams Tool Shaper Setup Operator Relationship Specialty Start Date End Date Virginia Mendoza MD [address] [place] [phone] PCP - General Family Medicine 10/06/23 documented as of this encounter
--- OUTSIDE RECORDS SUMMARY | 2024-07-08 20:46 | XMS_ITS | Encounter Summary ---
Author Organization [facility] er Address [address] [place] [address] Care Team Providers Care Screed Person Name Role Phone Virginia Mendoza MD Primary Care Provider Encounter Details Date Type Department Care Team (Late st Contact Info) Description 05/26/2024 1:15 PM MULTIFOCAL LENS ASSEMBLER Lab [facility] [address] [place] [address] test positive Social History Tobacco Use Types Packs/Day Years [...] and Family Not on file 05/31/2024 Attends Mosque Services Not on file 05/31 Active Member [...] Date Recorded PHQ-9 Total Score 0 05/31/2024 [facility] Occupat ional Health - Occupational Stress [...] place to sleep or slept in a detention (including now)? No 02/11/2023 Housing Stability Vital Sign Answer Jordy e Recorded In the last 12 months, was t here a time when you were not able to pay the mortgage or rent on time? No 05/31/2024 In the past 12 months, how m any times have you moved where you were living? 0 05/31/2024 At any time in the past 12 m [facility], were you homeless or living in a detention (including now)? No 05/31/2024 Comments No Sex and Gender Information Value [...] Info) Description 08/04/2024 1:30 PM CDT Routine [facility]'s [facility] Senior Clinical Research Scientist [address] [place] [phone] Heather Ramirez MD [address] [place] [phone] documented as of this encounter Procedures Procedure Name Priority Date/Time Associated Diagnosis Comments HCG, QUANTITATIVE, Routine 05/26/2024 1:15 PM MULTIFOCAL LENS ASSEMBLER test positive documented in this encounter Results * hCG, quantitative, (05/26/2024 1:15 PM MULTIFOCAL LENS ASSEMBLER) Total Beta hCG 21,343 mIU/mL 05/26/2024 4:13 PM MULTIFOCAL LENS ASSEMBLER [facility] Comment: Female Reference Range: Negative: <5 [...] testing. Blood (Blood, Venous) 05/26/2024 1:15 PM MULTIFOCAL LENS ASSEMBLER 05/26/2024 2:20 PM MULTIFOCAL LENS ASSEMBLER us Elsie Baker MD LAB BLOOD ORDERABLES Final R esult [facility] [address] [place] [address] documented in this encounter Visit Diagnoses Diagnosis test positive examination or test, positive result documented in this encounter Care Teams Screed Person Relationship Specialty Start Date End Date Virginia Mendoza MD [address] [place] [phone] PCP - General Family Medicine 10/06/23 documented as of this encounter
--- OUTSIDE RECORDS SUMMARY | 2024-07-08 20:46 | XMS_ITS | Encounter Summary ---
Author Organization [facility] er Address [address] [place] [address] Care Team Providers Care Senior Tax Analyst Name Role Phone Virginia Mendoza MD Primary Care Provider Encounter Details Date Type Department Care Team (Late st Contact Info) Description 06/07/2024 Orders Only [facility] Clinical Applications Specialist [address] [place] [address] [place] [address] [place] [phone] History of hepatitis C virus infection (Primary Dx) Social History Tobacco Use [...] from your doctor or pharmacy? Never 06/07/2024 [facility] Utilities Answer Date Recorded In the past 12 months has [facility] electric, gas, oil, or water company [...] often do you attend chur ch or spiritism services? Never 06/07/2024 Do you belong to any clubs o r organizations such as baptist groups, unions, fraternal or athletic groups, or [...] Date Recorded PHQ-9 Total Score 3 06/07/2024 [facility] of Occupat ional Health - Occupational Stress [...] place to sleep or slept in a correction (including now)? No 02/11/2023 Housing Stability Vital [...] any time in the past 12 m [facility], were you homeless or living in a correction (including now)? No 06/07/2024 Education Answer Date [...] Info) Description 08/04/2024 1:30 PM CDT Routine [facility] Clinical Applications Specialist [address] [place] [phone] Heather Ramirez MD [address] [place] [phone] documented as of this encounter Procedures Procedure Name Priority Date/Time Associated Diagnosis Comments ADD-ON TEST REQUEST Routine 06/07/2024 6 :01 PM FUEL CELL BINDER History of hepatitis C virus infection documented in this encounter Results * Add-On Test Request (06/07/2024 6:01 PM FUEL CELL BINDER) Add-on Testing SEE BELOW 06/07/2024 8:34 PM FUEL CELL BINDER [facility] Comment: HCV RNA detect/quant added 06/07/2024 6:01 PM FUEL CELL BINDER 06/07/2024 6:01 PM FUEL CELL BINDER us Heather Ramirez MD LAB BLOOD ORDERABLES Final Result [facility] [address] [place] [address] documented in this encounter Visit Diagnoses Diagnosis History of hepatitis C virus infection- Primary documented in this encounter Care Teams Senior Tax Analyst Relationship Specialty Start Date End Date Virginia Mendoza MD [address] [place] [phone] PCP - General Family Medicine 10/06/23 documented as of this encounter
--- OUTSIDE RECORDS SUMMARY | 2024-07-08 20:46 | XMS_ITS | Encounter Summary ---
Author Organization [facility] er Address [address] [place] [address] Care Team Providers Care Electric Golf Cart Repairers Name Role Phone Virginia Mendoza MD Primary Care Provider Encounter Details Date Type Department Care Team (Latest Contact Info) Description 06/02/2024 1:10 PM MECHANICAL ENGINEERING SPECIALIST - 06/02/2024 11:59 PM MECHANICAL ENGINEERING SPECIALIST Hospital Encounter [facility] Hospital Ultrasound [address] [place] [address] Discharge Disposition: Home or Self Care Social History Tobacco Use Types Packs/Day Years [...] and Family Not on file 05/31/2024 Attends Mandaeism Services Not on file 05/31 Active Member [...] Answer Date Recorded PHQ-9 Total Score 3 06/03/2024 [employer] of Occupat ional [facility] - Occupational Stress Questionnaire Answer Date [...] place to sleep or slept in a [place] health care facility (including now)? No 02/11/2023 Housing Stability Vital Sign Answer Jordy e Recorded In the last 12 months, was t here a time when you were not able to pay the mortgage or rent on time? No 05/31/2024 In the past 12 months, how m any times have you moved where you were living? 0 05/31/2024 At any time in the past 12 m [facility], were you homeless or living in a [place] health care facility (including now)? No 05/31/2024 Education Answer Date [...] on file documented as of this encounter Medications at Time of Discharge cholecalciferol (VITAMIN D-3) 50 MCG (1999) tablet folic acid (FOLVITE) 1 MG tablet FLUoxetine (PROzac) 40 MG capsuleIndication s:Moderate episode of recurrent major depressive disorder (HCC) Take 1 capsule (40 mg total) by mouth 1 (one) time each day 30 capsule 2 12/29/2023 06/11/2024 ibuprofen (ADVIL) 800 MG tabletIndications :Low back pain without sciatica, unspecified back pain laterality, unspecified chronicity Take 1 tablet (800 mg total) by mouth 3 (three) times a day if needed for mild pain (pain) for up to 30 doses Take with food. 30 tablet 03/06/2023 06/07/2024 MV-Min-Fe Fum-FA-DHA ( 1 PO) 05/08/2024 documented as of this encounter Plan of Treatment Upcoming Encounters Date Type Department Care Team (Late st Contact Info) Description 08/04/2024 1:30 PM CDT Routine [facility]'s [facility] General Pediatrician [address] [place] [phone] [place] [address] [place] [phone] documented as of this encounter Procedures Procedure Name Priority Date/Time Associated Diagnosis Comments US OB LESS THAN 14 WEEKS INCLUDING TRANSVAGINAL Routine 06/02/2024 1:38 PM MECHANICAL ENGINEERING SPECIALIST Date of last menstrual period (LMP) unknown documented in this encounter Results * Ultrasound OB less than 14 weeks including transvaginal (06/02/2024 1:38 PM MECHANICAL ENGINEERING SPECIALIST) Anatomical Region Laterality Modality Body, Pelvis Ultrasound Impressions 06/02/2024 1:49 PM MECHANICAL ENGINEERING SPECIALIST There is a single live 1.09 cm 7w2d intrauterine gestation with heart rate of 128 bpm. Narrative 06/02/2024 1:49 PM MECHANICAL ENGINEERING SPECIALIST INDICATION: dating ultrasound COMPARISON: None available FINDINGS: [...] IMG OB US PROCEDURES Final R esult documented in this encounter Visit Diagnoses Not on filedocumented in this encounter Care Teams Electric Golf Cart Repairers Relationship Specialty Start Date End Date Virginia Mendoza MD [address] [place] [phone] PCP - General Family Medicine 10/06/23 documented as of this encounter
--- OUTSIDE RECORDS SUMMARY | 2024-07-08 20:47 | XMS_ITS | Encounter Summary ---
[facility] Address [address] [place] [address] Care Team Providers Care Bindery Worker Name Role Phone Unknown, Physician Primary Care Provider [phone] Encounter Details Date Type Department Care Team (Late st Contact Info) Description 04/22/2019 Correspondence [facility] [address] [place] [phone] [place] [address] [place] [address] EMOTIONAL SUPPORT ANIMAL Social History Tobacco Use Types Packs/Day Years [...] have a drink containing alc ohol? Never 04/22/2019 Average Number of Drinks Not on file 020 Frequency of Binge Drinking Not on file 04/07 PHQ-2 Answer Date Recorded PHQ-2 Score 0 04/22/2019 Comments Unknown Sex and Gender Information Value Date Recorded Sex Assigned at Not on file Legal Sex Female 4:54 PM CDT Gender Identity Not on file Sexual Orientation Not on file documented as of this encounter Functional Status documented as of this encounter Plan of Treatment Not on file documented as of this encounter Visit Diagnoses Not on filedocumented in this encounter Care Teams Bindery Worker Relationship Specialty Start Date End Date Unknown, Physician [address] [place] [address] PCP - General Internal Medicine 12/01/15 documented as of this encounter
--- OUTSIDE RECORDS SUMMARY | 2024-07-08 20:47 | XMS_ITS ---
Author Organization [facility] Address [address] [place] [address] Care Team Providers Care Sand Molder Name Role Phone YVETTE MCCOLLUMEL Unavailable [phone] Encounters Encounter Location Date Provider Diagnosis [facility] [address] [place] [address] 09/02/2023 CARMEN MCCOLLUM Plan Of Treatment No Information Progress Notes * Vance AYALAeDOB:1995 (28 yo F)Acc No.[id number]:09/02/2023 Patient: Vance OSBORNmera :1995 A ge:28 Y S ex:Female Phone: Address:[address] [place], [address] * true * Date: Generated for Babatunde perry/Devendra/Gaelsmitting on: 0 07/08/2024 09:47 PM EDT
--- OUTSIDE RECORDS SUMMARY | 2024-07-08 20:47 | XMS_ITS | Encounter Summary ---
Author Organization [facility] Address [address] [place] [address] Care Team Providers Care Territory Supervisor Name Role Phone Virginia Mendoza MD Primary Care Provider Reason for Visit * Reason Onset Date Comments Positive test 05/26/2024 Letter for School/Work 05/26/2024 Encounter Details Date Type Department Care Team (Late st Contact Info) Description 05/26/2024 Telephone [facility] Grain Miller Helper [address] [place] [address] [place] [address] [place] [phone] Positive test; Letter for School/Work Social History Tobacco Use Types Packs/Day Years [...] from your doctor or pharmacy? Never 06/07/2024 [facility] Utilities Answer Date Recorded In the past 12 months has [employer], gas, oil, or water [employer] threatened to shut off services in your [...] often do you attend chur ch or restorationist services? Never 06/07/2024 Do you belong to any clubs o r organizations such as jewish groups, unions, fraternal or athletic groups, or [...] Date Recorded PHQ-9 Total Score 3 06/07/2024 [facility] [place] of Occupat ional Health - Occupational Stress [...] to sleep or slept in a senior living (including now)? No 02/11/2023 Housing Stability Vital [...] any time in the past 12 m [facility], were you homeless or living in a senior living (including now)? No 06/07/2024 Comments No Sex and Gender Information Value [...] encounter Miscellaneous Notes * Telephone Encounter - Elsie Baker MD - 05/26/2024 11:49 AM SUBSTITUTE NURSE Lifting heavy is not a known cause for miscarriage. She may have her labs to find out the appropriate rise in hcg level. Then, in her first visit she can discuss it with her provider. Thanks TITUTE NURSE * Telephone Encounter - Frieda Wilks RN - 05/26/2024 11:14 AM SUBSTITUTE NURSE Patient calls stating she found out she is , but is unsure of LMP and how far along she is.Patient has a prior history of a miscarriage in January of 2024, and 2 abortions at roughly age 19 and 20. 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 She has 1 specific patient that is very overweight and requires lots of lifting and help moving around, and patient is scared about over doing it and/or falling, or having something bad happen when she assists her patient. Counter Roller stated the providers typically do not provide work restrictions until she meets with them, but will send to powertrain control systems engineer provider to review and advise anyway. 2 beta hcg lab draws have been ordered for patient to complete, and will schedule dating US pendingon beta values. NOB phone call us scheduled for 05/31. No further questions at this time. TITUTE NURSE documented in this encounter Plan of Treatment Upcoming Encounters Date Type Department Care Team (Late st Contact Info) Description 08/04/2024 1:30 PM CDT Routine [facility] Grain Miller Helper [address] [place] [address] Heather Ramirez MD [address] [place] [phone] Scheduled Orders Name Type Priority Associated Diagnoses Orde r Schedule hCG, quantitative, Lab Routine test positive Expected: 05/28/2024, Expires: 05/26/2025 documented as of this encounter Results * hCG, quantitative, (05/26/2024 1:15 PM SUBSTITUTE NURSE) Total Beta hCG 21,343 mIU/mL 05/26/2024 4:13 PM SUBSTITUTE NURSE [facility] Comment: Female Reference Range: Negative: [...] testing. Blood (Blood, Venous) 05/26/2024 1:15 PM SUBSTITUTE NURSE 05/26/2024 2:20 PM SUBSTITUTE NURSE us Elsie Baker MD LAB BLOOD ORDERABLES Final R esult [facility] [address] [place] [address] documented in this encounter Visit Diagnoses Diagnosis test positive- Primary examination or test, positive result documented in this encounter Care Teams Territory Supervisor Relationship Specialty Start Date End Date Virginia Mendoza MD [address] [place] [address] PCP - General Family Medicine 10/06/23 documented as of this encounter
--- OUTSIDE RECORDS SUMMARY | 2024-07-08 20:47 | XMS_ITS ---
Author Organization [facility] Address [address] [place] [address] Care Team Providers Care Technician Name Role Phone CARMEN MCCOLLUM Unavailable [phone] Allergies No Known Allergies REASON FOR VISIT AB TO [facility] Prescription Refill Medications Medication SIG (Take, Route, Frequency, Duration) [...] (Standard) Question Answer Notes Tobacco use: Nonsmoker Vital Signs Height 65 in 09/08/2023 Weight 130 lbs 09/08/2023 BMI 21.63 kg/m2 09/08/2023 Patient Reported Normal Bloo d PresurePatient Reported Normal Temperature Encounters Encounter Location Date Provider Diagnosis [facility] [address] [place] [address] 09/08/2023 CARMEN MCCOLLUM Anxiety F41.9 and Opioid use F11.90 Assessments Encounter Date Diagnosis (ICD Code) Assessment Notes Treatment Notes Treatment Clinical Notes Section Notes 09/08/2023 Anxiety (ICD-10 - F41.9) FLAG THIS CHART. PATIENT IS DRUG SHOPPING. CALLED PHARMACY AND SHE WENT [facility] AND PICKED UP A SCRIPT FOR ALPRAZOLAM 1 MG ONCE DAILY FOR 15 DAYS#15 TABS, FOR A DR. CORIN YUSUF ON 09/03/2023. TREATMENT PLAN: MEDICATION DENIED [...] are a list of different online options: https://www.VitalMedix.Livekick/ https://www.Pictela.Livekick/ https://www.Social & Beyond pace.com/ https://www.Network Chemistry.Livekick/ https://Marsh[employer] Group.SocStock.Livekick Take medicines exactly as directed. Call your doctor if you think you are having a problem with your medicine. Go to your counseling sessions and follow-up appointments. Call 911 anytime you think you may need emergency care. For example, call if: You feel you cannot stop from hurting yourself or someone else. Keep the numbers for these national suicide hotlines: Dial 988, 0-919-933-TALK ( ) or 6-900-HTEGXMT ( ). If you or someone you know talks about suicide or feeling hopeless, get help right away. Watch closely for changes in your health, and be sure to contact your doctor if: You have anxiety or fear that affects your life. You have symptoms of anxiety that are new or different from those you had before. 09/08/2023 Opioid use (ICD-10 - F11.90) 09/08/2023 Other Follow the treatment plan as [...] Of Treatment Treatment Notes Assessment Notes Anxiety FLAG THIS CHART. PATIENT IS DRUG SHOPPING. CALLED PHARMACY AND SHE WENT [facility] AND PICKED UP A SCRIPT FOR ALPRAZOLAM 1 MG ONCE DAILY FOR 15 DAYS#15 TABS, FOR A DR. CORIN YUSUF ON 09/03/2023. TREATMENT PLAN: MEDICATION DENIED [...] are a list of different online options: https://www.talkiatry.com/ https://www.brightside.com/ https://www.RealScout.com/ https://www.betterhelp.com/ https://get.cerebral.com Take medicines exactly as directed. Call your doctor if you think you are having a problem with your medicine. Go to your counseling sessions and follow-up appointments. Call 911 anytime you think you may need emergency care. For example, call if: You feel you cannot stop from hurting yourself or someone else. Keep the numbers for these national suicide hotlines: Dial 988, 1-201-083-TALK ( ) or 1-251-URZINNI ( ). If you or someone you [...] are having a problem with your medicine. Next Appt Details Follow Up: prn, Reason: flag chart. -possible drug shopping. Progress Notes * Carolin AYALAOB:1995 (28 yo F)Acc No.[id number]:09/08/2023 Patient: Jamar OSBORN Provider: Jr MCCOLLUM MD :1995 A ge:28 Y S ex:Female Date:09/08/2023 Phone: Address:[address] , [place], [place]-[phone] Subjective: * Chief Complaints: * 1 . AB TO [facility] Prescription Refill. * HPI: I solation Precautions: PER PATIENT: I have been having severe and panic attacks a doctor prescribed me to alprazolam 1mg and and I been off and on it for years now. But my insurance changed and I can no longer see my regular doctor. I only have 1 pill left and I need them for work, and functioning in life. I can send you a picture of the bottle and I also put in a refill request. My panic attacks can get so bad that I will have seizures. I do not have a primary doctor right now because of my insurance change. PATIENT WAS DENIED CLONAZEPAM REQUEST JUST 6 DAYS AGO A PRIOR ASYNC ENCOUNTER. T [facility] Complaint History: Reason for visit:Requested: Alprazolam, 1 mg, 30 Reason: Panic attacks, anxiety How Long: Off and on for 2 years Prescriber: Corin uysuf Per Pt:I have no refills left. I could only see this provider once because my insurance changed. I will not he able to go to work with out them. I have panic attacks daily. * ROS: A ll Other Systems: Review of Systems (ROS) S ee HPI for details. * Medical History: A nxiety, Opioid addiction. * Surgical History: D enies Past Surgical History. * Hospitalization/Major Diagno stic Procedure: D enies Past Hospitalization. * Family History: DENIES. * Social History: T obacco Use: T obacco Control (Standard) T obacco use: N onsmoker D rugs/Alcohol: D o you drink alcohol?: No. * Medications: T aking ALPRAZolam 1 MG Tablet Oral , Taking clonazePAM 0.5 MG Tablet Oral , Taking Buprenorphine HCl-Naloxone HCl 4-1 MG Film Sublingual , Taking FLUoxetine HCl 20 MG Capsule Oral , [...] Assessment: 1. A nxiety - F41.9 (Primary) 2 . O pioid use - F11.90 Plan: * Treatment: 2. O thers Notes: Follow the treatment plan as indicated by the provider. Take any medications as prescribed. If you have any questions about your prescription, ask the pharmacist. [id number] you think you may need emergency care. [...] or call 911 immediately for further evaluation. * Procedure Codes: S 9088 [facility], [address] Office Visit, Est Pt., Level 2 Virtual Visit, Modifiers: 95 , MPFEE Merchant / CC Processing Fee * Follow Up: p rn (Reason: flag chart. -possible drug shopping.) * Billing Information: * Visit Code: 45430 Office Visit, Est Pt., Level 2. Modifiers: 25 * Procedure Codes: S9088 [facility]. 73265 Office Visit, Est Pt., Level 2 Virtual Visit. Modifiers: 95 MPFEE Merchant / CC Processing Fee. * Sign off status: Completed true * Provider: Jr MCCOLLUM MD Date: 0 09/08/2023 Generated for Babatunde perry/Faxing/eTransmitting on: 0 07/08/2024 09:47 PM EDT History and Physical Notes * HPI (History of Present Illness) Category Sub-Category Detail Notes Category Not es Isolation Precautions PER PATIENT: I have been having severe and panic attacks a doctor prescribed me to alprazolam 1mg and and I been off and on it for years now. But my insurance changed and I can no longer see my regular doctor. I only have 1 pill left and I need them for work, and functioning in life. I can send you a picture of the bottle and I also put in a refill request. My panic attacks can get so bad that I will have seizures. I do not have a primary doctor right now because of my insurance change. PATIENT WAS DENIED CLONAZEPAM REQUEST JUST 6 DAYS AGO A PRIOR ASYNC ENCOUNTER. Physical Examination Category Sub-Category Detail Notes Section Note s Asynchronous vi sit, unable to assess
--- OUTSIDE RECORDS SUMMARY | 2024-07-08 20:47 | XMS_ITS | Clinical Summary ---
Author Organization [facility] Address [address] [place] [address] Care Team Providers Care Trial Examiner Name Role Phone Dean Warren MD Primary Care Provider Allergies No known active allergies Medications venlafaxine extended release (VENLAFAXINE XR, [employer],) 225 mg extended release tabletIndicati ons:Anxiety and depression Take 1 tablet by mouth once daily with evening meal. 30 tablet 1 9 Active naltrexone (REVIA) 50 mg tabletIndicati ons:Polysubsta nce abuse (HC) Take 1 tablet daily if needed for cravings. 30 tablet 1 9 Active naltrexone ER (VIVITROL) 380 mg serrIndication s:Alcohol use disorder, moderate, in early remission (HC) Inject 380 mg intramuscular every 4 weeks. 4 mL 11 9 Active gabapentin (NEURONTIN) 300 mg capsuleIndicat ions:Anxiety and depression Take 2 capsules by mouth 2 times daily if needed for Other (Specify) (Anxiety). 30 capsule 9 Active Hospital, Clinic, or Other Facility Administered Medication Ordered Dose Route Frequency Start Date End Date Status etonogestrel subdermal implant (NEXPLANON) 1 EachIndications:Encounter for counseling regarding contraception 1 Each Sdrm Q 3 YEARS 01/22/2019 Active Active Problems Problem Noted Date Diagnosed Date QUINTON (generalized anxiety disorder) 01/22/[address] 01/22/2019 Overview (01/22/2019): Left arm. Placed 01/22/2019 Alcohol use disorder, severe, in early remission 01/22/2019 Severe benzodiazepine use disorder 01/22/2019 Polysubstance abuse 01/22/2019 Anxiety and depression 01/22/2019 Immunizations Immunization Administration Dates Next Due HPV 9 (Gardasil 9) 04/22/2019 Hepatitis A (Adult) 01/22/2019 Hepatitis B (Adult) 01/22/2019 Influenza Virus, Unspecified 02/14/2019,01/23/20 19 Influenza, IIV4 01/22/2019 Social History Tobacco Use Types Packs/Day Years Used Date Smoking Tobacco: Former Smokeless Tobacco: Never Comments:uses E-cig regularl y Alcohol Use Standard Drinks/Week Comments Not Currently 0 (1 standard drink = 0.6 oz pur e alcohol) PHQ-2 Answer Date Recorded PHQ-2 Score 0 04/30/2019 Social Connections Answer Date Recorded Frequency of Communication with Friends and Fami ly Not on file 04/07/2021 Financial Resource Strain Answer Date R ecorded Difficulty of Paying Living Expenses Not on file 04/07/2021 Difficulty of Paying Living Expenses Not on file 04/07/2021 Comments No Sex and Gender Information Value Date Recorded Sex Assigned at Not on file Legal Sex Female 12:47 PM CDT Gender Identity Not on file Sexual Orientation Not on file Obstetrics History Last Filed Vital Signs Vital Sign Reading Time Taken Comments Blood Pressure 121/82 05/06/2019 11:08 AM MERCHANDISING CONSULTANT Pulse 102 05/06/2019 11:08 AM MERCHANDISING CONSULTANT Temperature 36.4 C (97.6 F) 05/06/2019 11:08 AM MERCHANDISING CONSULTANT Respiratory Rate 18 01/22/2019 10:45 AM CDT Oxygen Saturation 98% 05/06/2019 11:08 AM MERCHANDISING CONSULTANT Inhaled Oxygen Concentration - - Weight 56.7 kg (125 lb) 05/06/2019 11:08 AM MERCHANDISING CONSULTANT Height 166.5 cm (5' 5.55) 04/30/2019 2:39 PM CS T Body Mass Index 20.45 04/30/2019 2:39 PM MERCHANDISING CONSULTANT Plan of Treatment Health Maintenance Due Date Last Done Comments Tdap 2005 Tetanus booster 2014 BMI (ht and wt on same day) for age 18+ 04/30/2020 04/30/2019, 01/22/2019 Depression screening for age 12+ 05/10/2020 05/10/2019, 05/06/2019, 05/04/2019, Additional history exists Pap test for age 21-65 11/24/2021 9 ([facility]) COVID-19 vaccine series (2023- season) 2023 Influenza Vaccine (Season Ended) 2024 02/14/2019, 01/22/2019, 01/22/2019 HIV for age 15-65 Completed 09/10/2018 Hepatitis C screening for age 18-79 Completed 09/10/2018 Pneumococcal series for age 6-49 Aged Out No longer eligible based on patient's age to complete this topic Procedures Procedure Name Priority Date/Time Associated Diagnosis Comments ANTI HIV 1/2 Routine 09/10/2018 1:41 PM CDT HCV RNA QUANT Routine 09/10/2018 1:41 PM CDT from Last 3 Months or Most Recently Relevant to Health Maintenance Results * HCV RNA QUANT (09/10/2018 1:41 PM CDT) Pathologist [facility] HCV RNA RT-PCR HCV RNA not detected HCV RNA not detected IU/mL 09/15/2018 1:45 PM CDT [facility] Blood BLOOD SPECIMEN / Unknown Venipuncture / Unknown 09/10/2018 1:41 PM CDT 09/10/2018 1:47 PM CDT Narrative [facility] - 09/15/2018 1:45 PM CDT Method: David HCV Test us Rose Isaac MD SEND OUTS Final Result [facility] [address] [place] [address], * ANTI HIV 1/2 (09/10/2018 1:41 PM CDT) Pathologist [facility] HIV-1/HIV-2 ANTIBODY Non-Reacti ve Non-Reacti ve 09/10/2018 5:33 PM CDT [facility] Comment:HIV-1 p24 and HIV-1/ HIV-2 Ab not detected. Blood BLOOD SPECIMEN / Unknown Venipuncture / Unknown 09/10/2018 1:41 PM CDT 09/10/2018 1:47 PM CDT us Rose Isaac MD SEND OUTS Final Result [facility] [address] [place] [address], [place] from Last 3 Months or Most Recently Relevant to Health Maintenance Insurance [id number] [place] [id number] [employer] CROSS OF NON-PR-ITS [id number] [place] [id number] [employer] OF NON-PR-ITS Member Subscriber Plan / Payer (Ef fective 2014-Present) Name:Jamar Ayala Relation to Subscriber:Child Name:SEGUN AYALA Date of :1968 (Home) Address: [address] [place] [address] Payer ID:[id number] (NAIC) Type:Not on file Address: [place] [id number] Care Teams Trial Examiner Relationship Specialty Start Date End Date Dean Warren MD PCP - General Family Practice 01/22/19
== END 2024-07-08 22:21 | disposition home or self-care (01) ==
LOC: ED 20:43
PROVIDERS: Emergency Provider Emergency Medicine Emergency Medical Services
DX: R41.82 Altered mental status, unspecified (principal)
CPT/HCPCS: 36415; 70450; 80048; 80179; 80306; 81001; 82077; 85025; 93005; 99284